=== PATIENT | male | born 1945 | race Caucasian/White ===

== ENCOUNTER → 2017-01-11 | Outpatient (CLI) | payer MEDICARE ==
[2017-01-11 11:34] LABS: CH 27.9; CHCM 32.5; HCT 47.2 % (39.0-53.0); HDW 2.43; HGB 16.1 gm/dL (13.0-17.5); MCH 29.5 pg (25.0-35.0); MCHC 34.1 g/dL (31.0-37.0); MCV 86.4 fL (80.0-100.0); Mean Platelet Volume 7.6; RBC 5.46 m/uL (4.30-5.90); RDW 14.4 % (11.5-15.5); WBC 8.6 k/uL (3.8-10.6)
[2017-01-11 11:36] LABS: Anion Gap 11 mmol/L; Blood Urea Nitrogen 18 mg/dL (9-20); Carbon Dioxide 26 mmol/L (22-30); Chloride 105 mmol/L (98-107); Non-African American GFR(MDRD) >60 (>60 ml/min/1.73 sqM); Potassium 5.1 mmol/L (3.5-5.1); Sodium 142 mmol/L (137-145)
== END | disposition home or self-care (01) ==
LOC: LABPAT 10:47
PROVIDERS: ATTEND Internal Medicine Interventional Cardiology
DX: Z01.818 Encounter for other preprocedural examination (principal); I74.11 Embolism and thrombosis of thoracic aorta
CPT/HCPCS: 80051; 82565; 84520; 85027

== ENCOUNTER 2017-01-18 07:29 | Inpatient (IN) | payer MEDICARE ==
[~2017-01-18 07:29] MED LIST: SODIUM CHLORIDE 0.9% 1,000 ML in EMPTY BAG 1 BAG IV ONE
[2017-01-18] MEDS ORDERED: ASPIRIN 81 MG CHEW ONE (07:42)
[2017-01-18] MEDS: MIDAZOLAM 2 MG/2 ML VIAL IV ONE ×4 (08:38→09:31)
[2017-01-18] MEDS ORDERED: HEPARIN SODIUM 1,000 UNIT/ML VIAL IV ONE (08:55)
[2017-01-18] MEDS: fentaNYL (PF) 50 MCG/ML 2 ML AMP IV ONE ×2 (09:12→10:01)
[2017-01-18] MEDS ORDERED: MIDAZOLAM 2 MG/2 ML VIAL IVP ONE (10:14)
[2017-01-18] MEDS ORDERED: PROTAMINE SULFATE 10 MG/ML 5 ML VIAL IV ONE (10:41)
[2017-01-18] MEDS ORDERED: HYDROmorphone 2 MG/ML 1 ML SYRINGE IVP ONE (10:44)
[2017-01-18] MEDS ORDERED: LIDOCAINE URO-JET JELLY 2% 5 ML KIT ONE (10:59)
[2017-01-18] MEDS ORDERED: SODIUM CHLORIDE 0.9% 1,000 ML IV SCH (11:00)
--- NOTE | 2017-01-18 11:37 | P.OP ---
Date of Procedure: 01/18/17 Preoperative Diagnosis: Abdominal aortoiliac aneurysm Postoperative Diagnosis: Abdominal aortoiliac aneurysm Procedure(s) Performed: Abdominal aortic aortography and iliac aortography and angiography with femoral artery primary closure with Perclose Anesthesia: local Surgeon: Stephan Mcnally Estimated Blood Loss (ml): 50 Pathology: none sent Condition: stable Disposition: floor Description of Procedure: This patient is brought to the operating suite in the catheterization laboratory Lance HEDRICK in the care of Dr. Delmer Sears and co-surgeon's with Dr. Mcnally in the treatment of aortic endo-grafting for an aortic aneurysm prepped and draped in usual sterile Betadine fashion and appropriate cannulation of his aneurysm was accomplished and we placed Perclose devices for a #2 in each common femoral artery the procedure was performed under full heparinization and deployment of the ovulation device by Endologix was appropriately performed and will be dictated by Dr. Delmer Sears during the procedure I performed technical angiographic assistance including aortography with renal artery imaging as well as iliac artery angiography at the conclusion of the procedure I did Perclose closure of both common femoral arteries by deploying and tying down the 4 Perclose devices to 4 each common femoral artery right and left successfully sealing the artery with excellent flow through the artery documented by distal pulsation patient tolerated all these procedures well Dr. Mcnally dictating thank you for typing
[2017-01-18 19:53] LABS: Glucose,Whole Blood 154 mg/dL (75-99)
[2017-01-18 20:15] VITALS: BMI 22.3
--- NOTE | 2017-01-18 22:13 | PCN ---
DATE OF PROCEDURE: 01/18/2017 PERFORMING PHYSICIANS: 1. Stephan Mcnally D.O. 2. Delmer Ruth M.D., needle bar molder. PROCEDURES PERFORMED: 1. Endoluminal abdominal aortic aneurysm repair with modular bifurcated device. 2. Extension prosthesis initial vessels. 3. Extension prosthesis each additional vessel. 4. Catheter/sheath placement into aorta, non-selective. INDICATION: This is a pleasant 71-year-old gentleman whom I see in the office as an outpatient with a known history of coronary artery disease, hypertension, dyslipidemia as well as multiple comorbid conditions. He was found to have infrarenal abdominal aortic aneurysm. He underwent a CTA which showed abdominal aortic aneurysm more than 5 cm. He was brought today to undergo stent to graft placement. COMPLICATIONS: None. LEVEL OF SEDATION: Moderate with sedation length of about 2 hours. APPROACH: Right and left common femoral arteries. PROCEDURE DESCRIPTION: After obtaining informed consent, the patient was brought to the cardiac labor utilization superintendent. The right and left groins were prepped and draped in the usual sterile fashion. Local analgesia was achieved by injecting 2% Xylocaine subcutaneously into both groins. The right common femoral and left common femoral arteries were cannulated using micropuncture technique. The micropuncture wire passed easily. Then initially I placed a micropuncture sheath in each femoral artery. I assured that the puncture site was in the mid segment of the common femoral artery by the mid femoral head. I did assure by doing bilateral common femoral artery angiograms. Subsequently I exchanged my micropuncture sheath for a 6 Somali sheath using an 0.035 Advantage wire. So I placed a 6 Somali 11 cm sheath in each groin. After that, anticoagulation was initiated using heparin, and the patient was given 10,000 units of heparin IV. ACT monitoring was performed during the case. After that, I deployed two Perclose devices on each side. The two Perclose devices were deployed at 10 o'clock and 2 o'clock on each side. Subsequently, I took the 6 Somali sheath on each side and I placed a 14 Somali sheath. I performed that using dilator with 8 Somali, 10 Somali, and 12 Somali. After that, I advanced the main neema system over an 0.035 Amplatzer super stiff wire. The stent material was placed approximately 1 cm proximal to the intended landing zone after we performed an aortogram. I verified the radiopaque marker for proper contralateral limb orientation. After the graft and sheath, the proximal stent was partially deployed by turning and pulling the first stent with the knob to the handle. ( ) was then corrected and angiogram has then performed to camille the ( ). The device was pulled into the desired position. The proximal stent was then fully deployed by turning and pulling the second release knob on the handle. The ( ) properly mixed, then connected to the delivery system. The Auto Injector was connected and the appropriate amount of polymer filled the graft. The contralateral ( ) was then cannulated and angiogram was performed to determine contralateral limb length. The contralateral limb then was deployed by unsheathing the device. The delivery system was then removed by turning and pulling the final release knob on the handle. The inner catheter was retracted through the sheath. An angiogram was performed to determine the ipsilateral limb length. Subsequently the ipsilateral limb was deployed by unsheathing the device. A final angiogram was performed to inspect any visible leak, and there was no endo leak. After that I deployed the two Perclose devices on each side. The procedure was completed without any complications. POST-PROCEDURE MANAGEMENT: 1. Antiplatelet therapy. 2. CTA of the aorta at 1 month and 6 months. 3. Keeping the patient overnight in the intensive care unit. 4. Followup with the patient.
[2017-01-19 00:10] LABS: Basophils # (A) 0.1 k/uL (0-0.2); Basophils % (A) 1 %; CH 28.7; CHCM 33.3; Eosinophils # (A) 0.2 k/uL (0-0.7); Eosinophils % (A) 2 %; HCT 44.9 % (39.0-53.0); HDW 2.39; HGB 14.9 gm/dL (13.0-17.5); Luc # (Auto) 0.12; Luc % (Auto) 1; Lymphocytes % (A) 9 %; MCH 28.7 pg (25.0-35.0); MCHC 33.1 g/dL (31.0-37.0); MCV 86.7 fL (80.0-100.0); Mean Platelet Volume 7.9; Monocytes # (A) 0.6 k/uL (0-1.0); Monocytes % (A) 6 %; Neutrophils # (A) 8.6 k/uL (1.3-7.7); Neutrophils % (A) 81 %; RBC 5.19 m/uL (4.30-5.90); RDW 14.5 % (11.5-15.5); WBC 10.5 k/uL (3.8-10.6); WBC (Perox) 10.58
[2017-01-19 05:12] LABS: Basophils % (A) 0 %; CH 29.1; CHCM 34.2; Eosinophils # (A) 0.1 k/uL (0-0.7); Eosinophils % (A) 1 %; HCT 43.2 % (39.0-53.0); HDW 2.38; HGB 14.5 gm/dL (13.0-17.5); Luc # (Auto) 0.16; Luc % (Auto) 2; Lymphocytes # (A) 1.1 k/uL (1.0-4.8); Lymphocytes % (A) 11 %; MCH 28.6 pg (25.0-35.0); MCHC 33.5 g/dL (31.0-37.0); MCV 85.4 fL (80.0-100.0); Monocytes # (A) 0.6 k/uL (0-1.0); Monocytes % (A) 6 %; Neutrophils # (A) 8.2 k/uL (1.3-7.7); Neutrophils % (A) 80 %; RBC 5.06 m/uL (4.30-5.90); RDW 14.7 % (11.5-15.5); WBC 10.2 k/uL (3.8-10.6); WBC (Perox) 10.52
[2017-01-19 05:36] LABS: Anion Gap 9 mmol/L; Blood Urea Nitrogen 13 mg/dL (9-20); Calcium 9.2 mg/dL (8.4-10.2); Carbon Dioxide 24 mmol/L (22-30); Chloride 103 mmol/L (98-107); Glucose 108 mg/dL (74-99); Non-African American GFR(MDRD) >60 (>60 ml/min/1.73 sqM); Potassium 4.2 mmol/L (3.5-5.1); Sodium 136 mmol/L (137-145)
--- NOTE | 2017-01-19 08:41 | P.PN ---
Progress Note - Text CV Surgery Nursing Principal diagnosis: Abdominal aortoiliac aneurysm. POD: Abdominal aortic aortography and iliac aortography with angiographically and femoral artery primary closure with pre-close. Patient awake and alert, no distress noted, he is complaining of pain to his lower suprapubic area that runs across his lower abdomen. Vital Signs: Afebrile Vital Signs - 24 hr 01/18/17 01/18/17 01/18/17 11:25 11:40 11:56 Temperature Pulse Rate Pulse Rate [ Technical Communicator ] Pulse Rate [ 55 L 60 60 Supine Technical Communicator] Respiratory 16 16 16 Rate Blood Pressure Blood Pressure 146/70 126/65 119/62 [Left Arm Supine] Blood Pressure [Right Arm] O2 Sat by Pulse 98 99 97 Oximetry 01/18/17 01/18/17 01/18/17 12:10 12:45 13:10 Temperature Pulse Rate Pulse Rate [ Technical Communicator ] Pulse Rate [ 62 57 L 61 Supine Technical Communicator] Respiratory 16 16 16 Rate Blood Pressure Blood Pressure 115/63 140/66 114/60 [Left Arm Supine] Blood Pressure [Right Arm] O2 Sat by Pulse 98 98 97 Oximetry 01/18/17 01/18/17 01/18/17 14:12 15:00 16:00 Temperature Pulse Rate Pulse Rate [ Technical Communicator ] Pulse Rate [ 61 58 L 58 L Supine Technical Communicator] Respiratory 16 16 16 Rate Blood Pressure Blood Pressure 119/67 130/66 122/66 [Left Arm Supine] Blood Pressure [Right Arm] O2 Sat by Pulse 97 97 97 Oximetry 01/18/17 01/18/17 01/18/17 16:21 17:49 19:00 Temperature 97.8 F Pulse Rate Pulse Rate [ 60 Technical Communicator ] Pulse Rate [ 58 L 63 Supine Technical Communicator] Respiratory 16 16 16 Rate Blood Pressure Blood Pressure 121/66 122/78 [Left Arm Supine] Blood Pressure 161/77 [Right Arm] O2 Sat by Pulse 99 98 97 Oximetry 01/18/17 01/18/17 01/18/17 19:51 20:00 20:10 Temperature 98.7 F Pulse Rate 62 62 61 Pulse Rate [ Technical Communicator ] Pulse Rate [ Supine Technical Communicator] Respiratory 14 14 14 Rate Blood Pressure 161/77 161/77 Blood Pressure [Left Arm Supine] Blood Pressure [Right Arm] O2 Sat by Pulse 98 98 98 Oximetry 01/18/17 01/18/1701/18/17 20:20 20:30 20:40 Temperature Pulse Rate 61 59 L 60 Pulse Rate [ Technical Communicator ] Pulse Rate [ Supine Technical Communicator] Respiratory 14 14 14 Rate Blood Pressure 161/77 161/77 161/77 Blood Pressure [Left Arm Supine] Blood Pressure [Right Arm] O2 Sat by Pulse 99 98 99 Oximetry 01/18/17 01/18/17 01/18/17 20:50 21:00 21:10 Temperature Pulse Rate 60 64 61 Pulse Rate [ Technical Communicator ] Pulse Rate [ Supine Technical Communicator] Respiratory 14 29 H 18 Rate Blood Pressure 161/77 144/73 144/73 Blood Pressure [Left Arm Supine] Blood Pressure [Right Arm] O2 Sat by Pulse 99 98 98 Oximetry 01/18/17 01/18/17 01/18/17 21:20 21:30 21:40 Temperature Pulse Rate 64 61 61 Pulse Rate [ Technical Communicator ] Pulse Rate [ Supine Technical Communicator] Respiratory 25 H 11 L 17 Rate Blood Pressure 144/73 144/73 144/73 Blood Pressure [Left Arm Supine] Blood Pressure [Right Arm] O2 Sat by Pulse 96 98 97 Oximetry 01/18/17 01/18/17 01/18/17 21:43 21:50 22:00 Temperature Pulse Rate 65 59 L Pulse Rate [ Technical Communicator ] Pulse Rate [ Supine Technical Communicator] Respiratory 17 22 16 Rate Blood Pressure 144/73 135/72 Blood Pressure [Left Arm Supine] Blood Pressure [Right Arm] O2 Sat by Pulse 93 L 98 Oximetry 01/18/17 01/18/17 01/18/17 22:10 22:20 22:30 Temperature Pulse Rate 59 L 63 58 L Pulse Rate [ Technical Communicator ] Pulse Rate [ Supine Technical Communicator] Respiratory 16 14 14 Rate Blood Pressure 135/72 135/72 135/72 Blood Pressure [Left Arm Supine] Blood Pressure [Right Arm] O2 Sat by Pulse 97 97 96 Oximetry 01/18/17 01/18/17 01/18/17 22:40 22:50 23:00 Temperature Pulse Rate 58 L 58 L 61 Pulse Rate [ Technical Communicator ] Pulse Rate [ Supine Technical Communicator] Respiratory 14 14 14 Rate Blood Pressure 135/72 135/72 135/68 Blood Pressure [Left Arm Supine] Blood Pressure [Right Arm] O2 Sat by Pulse 97 98 98 Oximetry 01/18/17 01/18/17 01/18/17 23:10 23:20 23:30 Temperature Pulse Rate 59 L 57 L 58 L Pulse Rate [ Technical Communicator ] Pulse Rate [ Supine Technical Communicator] Respiratory 14 10 L 13 Rate Blood Pressure 135/68 135/68 135/68 Blood Pressure [Left Arm Supine] Blood Pressure [Right Arm] O2 Sat by Pulse 99 98 97 Oximetry 01/18/17 01/18/17 01/18/17 23:36 23:40 23:50 Temperature Pulse Rate 60 58 L 62 Pulse Rate [ Technical Communicator ] Pulse Rate [ Supine Technical Communicator] Respiratory 18 11 L 12 Rate Blood Pressure 135/68 135/68 135/68 Blood Pressure [Left Arm Supine] Blood Pressure [Right Arm] O2 Sat by Pulse 97 95 97 Oximetry 01/19/17 01/19/17 01/19/17 00:00 00:10 00:20 Temperature 98.3 F Pulse Rate 64 60 61 Pulse Rate [ Technical Communicator ] Pulse Rate [ Supine Technical Communicator] Respiratory 16 16 14 Rate Blood Pressure 129/69 129/69 129/69 Blood Pressure [Left Arm Supine] Blood Pressure [Right Arm] O2 Sat by Pulse 96 97 95 Oximetry 01/19/17 01/19/17 01/19/17 00:30 00:40 00:50 Temperature Pulse Rate 62 64 64 Pulse Rate [ Technical Communicator ] Pulse Rate [ Supine Technical Communicator] Respiratory 14 12 23 Rate Blood Pressure 129/69 129/69 129/69 Blood Pressure [Left Arm Supine] Blood Pressure [Right Arm] O2 Sat by Pulse 95 94 L 92 L Oximetry 01/19/17 01/19/17 01/19/17 01:00 01:10 01:20 Temperature Pulse Rate 63 65 66 Pulse Rate [ Technical Communicator ] Pulse Rate [ Supine Technical Communicator] Respiratory 13 18 16 Rate Blood Pressure 121/65 121/65 121/65 Blood Pressure [Left Arm Supine] Blood Pressure [Right Arm] O2 Sat by Pulse 94 L 94 L 94 L Oximetry 01/19/17 01/19/17 01/19/17 01:30 01:40 01:50 Temperature Pulse Rate 65 65 66 Pulse Rate [ Technical Communicator ] Pulse Rate [ Supine Technical Communicator] Respiratory 11 L 16 15 Rate Blood Pressure 121/65 121/65 121/65 Blood Pressure [Left Arm Supine] Blood Pressure [Right Arm] O2 Sat by Pulse 94 L 94 L 94 L Oximetry 01/19/17 01/19/17 01/19/17 02:00 02:10 02:20 Temperature Pulse Rate 61 65 66 Pulse Rate [ Technical Communicator ] Pulse Rate [ Supine Technical Communicator] Respiratory 16 13 17 Rate Blood Pressure 116/64 116/64 116/64 Blood Pressure [Left Arm Supine] Blood Pressure [Right Arm] O2 Sat by Pulse 94 L 93 L 93 L Oximetry 01/19/17 01/19/17 01/19/17 02:30 02:40 02:50 Temperature Pulse Rate 65 66 63 Pulse Rate [ Technical Communicator ] Pulse Rate [ Supine Technical Communicator] Respiratory 18 12 14 Rate Blood Pressure 116/64 116/64 116/64 Blood Pressure [Left Arm Supine] Blood Pressure [Right Arm] O2 Sat by Pulse 93 L 93 L 93 L Oximetry 01/19/17 01/19/17 01/19/17 03:00 03:10 03:19 Temperature Pulse Rate 65 63 Pulse Rate [ Technical Communicator ] Pulse Rate [ Supine Technical Communicator] Respiratory 14 15 15 Rate Blood Pressure 114/67 114/67 Blood Pressure [Left Arm Supine] Blood Pressure [Right Arm] O2 Sat by Pulse 93 L 93 L Oximetry 01/19/17 01/19/17 01/19/17 03:20 03:30 03:40 Temperature Pulse Rate 62 62 60 Pulse Rate [ Technical Communicator ] Pulse Rate [ Supine Technical Communicator] Respiratory 13 14 13 Rate Blood Pressure 114/67 114/67 114/67 Blood Pressure [Left Arm Supine] Blood Pressure [Right Arm] O2 Sat by Pulse 94 L 94 L 94 L Oximetry 01/19/17 01/19/17 01/19/17 03:50 04:00 04:10 Temperature 97.6 F Pulse Rate 60 57 L 63 Pulse Rate [ Technical Communicator ] Pulse Rate [ Supine Technical Communicator] Respiratory 15 11 L 18 Rate Blood Pressure 114/67 119/66 119/66 Blood Pressure [Left Arm Supine] Blood Pressure [Right Arm] O2 Sat by Pulse 95 96 94 L Oximetry 01/19/17 01/19/17 01/19/17 04:20 04:30 04:40 Temperature Pulse Rate 59 L 58 L 58 L Pulse Rate [ Technical Communicator ] Pulse Rate [ Supine Technical Communicator] Respiratory 14 12 16 Rate Blood Pressure 119/66 119/66 119/66 Blood Pressure [Left Arm Supine] Blood Pressure [Right Arm] O2 Sat by Pulse 95 96 95 Oximetry 01/19/17 01/19/17 01/19/17 04:50 05:00 05:30 Temperature Pulse Rate 61 62 55 L Pulse Rate [ Technical Communicator ] Pulse Rate [ Supine Technical Communicator] Respiratory 14 11 L 17 Rate Blood Pressure 119/66 118/64 118/64 Blood Pressure [Left Arm Supine] Blood Pressure [Right Arm] O2 Sat by Pulse 95 96 92 L Oximetry 01/19/17 01/19/17 01/19/17 06:00 06:30 07:00 Temperature Pulse Rate 61 87 75 Pulse Rate [ Technical Communicator ] Pulse Rate [ Supine Technical Communicator] Respiratory 13 26 H 18 Rate Blood Pressure 115/67 115/67 115/67 Blood Pressure [Left Arm Supine] Blood Pressure [Right Arm] O2 Sat by Pulse 92 L Oximetry 01/19/17 08:00 Temperature 98.4 F Pulse Rate 84 Pulse Rate [ Technical Communicator ] Pulse Rate [ Supine Technical Communicator] Respiratory 16 Rate Blood Pressure 123/70 Blood Pressure [Left Arm Supine] Blood Pressure [Right Arm] O2 Sat by Pulse 98 Oximetry Labs: Short CBC 01/18/17 01/19/17 Range/Units 23:57 04:54 WBC 10.5 10.2 (3.8-10.6) k/uL Hgb 14.9 14.5 (13.0-17.5) gm/dL Hct 44.9 43.2 (39.0-53.0) % Plt Count 109 L 117 L (150-450) k/uL Neutrophils # 8.6 H 8.2 H (1.3-7.7) k/uL BMP 01/19/17 04:54 Sodium 136 L Potassium 4.2 Chloride 103 Carbon Dioxide 24 BUN 13 Creatinine 1.00 Glucose 108 H Calcium 9.2 Lungs: Coarse rhonchi throughout, clears with coughing. Diminished bilateral bases. Respirations are unlabored. O2 sat: 98% on room air. Heart: S1S2, regular rhythm and rate, negative for S3, gallop or murmur. Bedside telemetry showing normal sinus rhythm heart rate 83. Bilateral groin incisions clean dry and well approximated. No drainage noted. The area surrounding incisions soft palpate. Bilateral dorsalis pedis and posterior tibial pulses palpable +2. Bilateral feet cold to touch. Sequential compression devices in place to bilateral lower x-rays. Abdomen: Soft, Positive bowel sounds present in all 4 quadrants. Patient states that he is passing gas. U/O: Adequate, 1020 mL output in the last 8 hours. The bedside nurse reports urology has been consult in due to some serosanguineous colored discharge. 24 hr Total: Intake & Output 01/17/17 01/18/17 01/19/17 01/20/17 06:59 06:59 06:59 06:59 Intake Total 3000 360 Output Total 5020 50 Balance -2019 310 Weight 74.843 kg 70.5 kg Active Medications Aspirin (Aspirin) 325 mg PO DAILY OMAR Clopidogrel Bisulfate (Plavix) 75 mg PO DAILY OMAR Pravastatin Sodium (Pravachol) 80 mg PO DAILY OMAR
[2017-01-19] MEDS ORDERED: PRAVASTATIN SODIUM 80 MG TAB PO SCH (09:00)
[2017-01-19] MEDS ORDERED: CLOPIDOGREL 75 MG TAB PO SCH (09:00)
[2017-01-19] MEDS ORDERED: ASPIRIN 325 MG TAB PO SCH (09:00)
[2017-01-19 11:07] VITALS: BP 111/63
[2017-01-19 12:04] VITALS: PULSE 58; RESP 13; TEMP 97.9
--- NOTE | 2017-01-19 13:24 | IR ---
Fluoroscopy HISTORY: Aortic aneurysm 29.1 fluoroscopy time supplied to the referring clinician. 298 intraoperative C-arm images document the procedure. See dictated report from cardiology.
--- NOTE | 2017-01-19 22:12 | CONS ---
DATE OF CONSULTATION: 01/19/2017. REASON FOR CONSULTATION: Hematuria. HISTORY OF PRESENT ILLNESS: The patient is a 71-year-old male who underwent elective endovascular repair of an abdominal aortic aneurysm yesterday. A Howard catheter was inserted at the time of the surgery and the urine that initially drained was clear. Early this morning the patient was noted to have some blood draining around the catheter and through the catheter. The bleeding through the catheter has decreased, but the patient continues to have some blood oozing around the catheter. I was asked to see the patient for further evaluation. The patient has no previous history of gross hematuria. He says he usually voids every 2 to 4 hours during the day and once or twice at night. He has no history of urinary tract infection. His urine flow is described as moderate and he feels he voids completely. Patient's past medical history is significant in regard to coronary artery disease. Current medications include: 1. Aspirin. 2. Plavix. 3. Pravachol. Physical exam reveals a well-developed, 71-year-old male who is alert and oriented. Genital exam revealed no blood around the urethral catheter at the present time, and the urine in the catheter drainage bag was only slightly blood-tinged. Both testicles are descended. No hernias noted. IMPRESSION: Hematuria, most likely related to catheter trauma-worsened by use of aspirin and Plavix. RECOMMENDATION: The patient's catheter can be removed. If his urine remains clear, then no further urologic evaluation is necessary. MTDD
--- NOTE | 2017-01-20 15:09 | DS ---
DATE OF ADMISSION: 01/18/2017 DATE OF DISCHARGE: 01/19/2017 BRIEF HISTORY: This is a pleasant 71-year-old gentleman who was admitted to the hospital and underwent successful endovascular repair of infrarenal aortic aneurysm. The procedure was performed by myself in association with Dr. Pepe Mcnally. The procedure was performed from bilateral groin approach. Both groins seem to be soft and nontender and without any bruises. I was able to feel good pulse in both groins. From a cardiovascular point of view, the patient denies having any chest pain or discomfort or difficulty in breathing. I am going to discharge the patient home on aspirin and statin. The patient will be followed by myself as an outpatient, and he also will be followed by Dr. Zoltan Porras.
== END 2017-01-19 13:24 | disposition home or self-care (01) | DRG 269 ==
LOC: CATHCVL 07:29 → 6ICU 10:45
PROVIDERS: ADMIT Internal Medicine Interventional Cardiology; ATTEND Internal Medicine Interventional Cardiology
PROC: 04V03EZ Restriction of Abdominal Aorta with Branched or Fenestrated Intraluminal Device, One or Two Arteries, Percutaneous Approach (ICD-10-PCS; principal; 2017-01-18 08:20)
PROC: B41D1ZZ Fluoroscopy of Aorta and Bilateral Lower Extremity Arteries using Low Osmolar Contrast (ICD-10-PCS; 2017-01-18 08:20)
DX: I71.4 Abdominal aortic aneurysm, without rupture (principal); D68.32 Hemorrhagic disorder due to extrinsic circulating anticoagulants; R31.9 Hematuria, unspecified; I10 Essential (primary) hypertension; E78.5 Hyperlipidemia, unspecified; I25.10 Atherosclerotic heart disease of native coronary artery without angina pectoris; I73.9 Peripheral vascular disease, unspecified; F17.210 Nicotine dependence, cigarettes, uncomplicated; Z95.1 Presence of aortocoronary bypass graft; Z95.5 Presence of coronary angioplasty implant and graft; I25.2 Old myocardial infarction; Z79.02 Long term (current) use of antithrombotics/antiplatelets; Z79.82 Long term (current) use of aspirin; Z79.899 Other long term (current) drug therapy; Z88.2 Allergy status to sulfonamides
CPT/HCPCS: 34803; 36200; 75952; 80048; 85025

== ENCOUNTER → 2017-02-14 | Outpatient (CLI) | payer MEDICARE ==
[2017-02-14 14:01] LABS: Blood Urea Nitrogen 19 mg/dL (9-20); Non-African American GFR(MDRD) >60 (>60 ml/min/1.73 sqM)
--- NOTE | 2017-02-14 15:24 | CT ---
EXAMINATION TYPE: CT angio abd aorta wo/w con DATE OF EXAM: 02/14/2017 3:03 PM COMPARISON: 09/12/2016 HISTORY: Follow up stent placement CT DLP: 684.6 mGycm CONTRAST: CTA abdominal aorta with 3-D reconstruction is performed and with IV Contrast, patient injected with 100 mL of Omnipaque 350. Contrast CTA of the abdominal aorta was performed from the lung bases through the base of the pelvis. 3-D reconstruction imaging obtained at a separate workstation. CONTRAST CT ABDOMEN AND PELVIS ABDOMENAL AORTA: Interval placement of aortoiliac stent graft. No evidence for endoleak or complicati ng factor. Branch vessels perfuse normally including the celiac, SMA, ADAMS and renal arteries. Aneurys m measures 5.3 x 5.0 cm versus 5.5 x 5.2 cm previously. Iliac vessels are patent bilaterally. LIVER/GB- No significant abnormality is seen. PANCREAS- No significant abnormality is seen. SPLEEN- No significant abnormality is seen. ADRENALS-no nodule seen. Mild left adrenal thickening may reflect malacia. KIDNEYS/BLADDER- No significant abnormality is seen. BOWEL- No Significant abnormality GENITAL ORGANS: No gross abnormality seen. LYMPH NODES- No greater than 1cm abdominal or pelvic lymph nodes areappreciated. OSSEOUS STRUCTURES- No significant abnormality is seen. OTHER- No significant abnormality is seen. IMPRESSION- Aortoiliac stent graft without complicating factor at this time.
== END | disposition home or self-care (01) ==
LOC: RADCTMAIN 13:00
PROVIDERS: ATTEND Internal Medicine Interventional Cardiology
DX: Z48.812 Encounter for surgical aftercare following surgery on the circulatory system (principal); Z95.828 Presence of other vascular implants and grafts; Z98.890 Other specified postprocedural states
CPT/HCPCS: 82565; 84520; 75635; 36415; Q9967

== ENCOUNTER → 2017-10-12 | Outpatient (CLI) | payer MEDICARE ==
[2017-10-12 13:13] LABS: Anion Gap 11 mmol/L; Blood Urea Nitrogen 18 mg/dL (9-20); Carbon Dioxide 28 mmol/L (22-30); Chloride 104 mmol/L (98-107); Potassium 4.7 mmol/L (3.5-5.1); Sodium 143 mmol/L (137-145)
[2017-10-12 14:15] LABS: HCT 47.8 % (39.0-53.0); HGB 15.9 gm/dL (13.0-17.5); MCH 28.3 pg (25.0-35.0); MCHC 33.2 g/dL (31.0-37.0); MCV 85.2 fL (80.0-100.0); Mean Platelet Volume 7.5; Platelet Count 160 k/uL (150-450); RBC 5.61 m/uL (4.30-5.90); RDW 14.3 % (11.5-15.5); WBC 8.7 k/uL (3.8-10.6)
== END | disposition home or self-care (01) ==
LOC: LABWHC1 12:29
PROVIDERS: ATTEND Internal Medicine Interventional Cardiology
DX: Z01.812 Encounter for preprocedural laboratory examination (principal); I73.9 Peripheral vascular disease, unspecified
CPT/HCPCS: 36415; 80051; 82565; 84520; 85027

== ENCOUNTER 2017-10-25 06:33 | Day surgery (SDC) | payer MEDICARE ==
[2017-10-13 16:04] VITALS: BMI 24.3
[2017-10-25 07:05] VITALS: TEMP 97.7
[2017-10-25] MEDS ORDERED: MIDAZOLAM 2 MG/2 ML VIAL IV ONE (07:53)
[2017-10-25] MEDS ORDERED: LIDOCAINE 2% INJ 20 MG/ML SQ ONE (07:56)
[2017-10-25] MEDS ORDERED: SODIUM CHLORIDE 0.9% 1,000 ML IV SCH (08:30)
--- NOTE | 2017-10-25 09:50 | LTR ---
October 25, 2017 Re: Lance Levin Dear Dr. Zurita: Mr. Lance Levin underwent a peripheral angiogram because he was experiencing bilateral lower extremities intermittent claudication. 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 I want to thank you for allowing me to participate in his care and please do not hesitate to call if you have any question or concern. Sincerely, MD KURT Green / RANDALL: [id number] /
--- NOTE | 2017-10-25 09:59 | IR ---
Fluoroscopy HISTORY: Pain in bilateral legs 2.3 minutes fluoroscopy time supplied to the referring clinician. 194 intraoperative C-arm images do cument the procedure. See dictated report from cardiology.
--- NOTE | 2017-10-25 10:13 | AN ---
ANGIOGRAPHY REPORT PERIPHERAL ANGIOGRAM: DATE OF SERVICE: 10/25/2017 PERFORMING PHYSICIAN: Delmer Ruth MD, Sewage Plant Operator. PROCEDURE PERFORMED: 1. An abdominal aortogram. 2. Bilateral lower extremities runoff. INDICATION: This is a pleasant 71-year-old gentleman who is known to have infrarenal stent graft, who was experiencing bilateral lower extremities discomfort. The symptoms were related to intermittent claudication. He underwent an arterial duplex study as an outpatient and that showed intermediate bilateral SFA disease. He was brought today for a peripheral angiogram. APPROACH: Right common femoral artery. COMPLICATION: None. LEVEL OF SEDATION: Moderate with sedation length of 20 minutes. PROCEDURE DESCRIPTION: After obtaining informed consent, the patient was brought to Cardiac Low Voltage Technician. The right common femoral artery was cannulated using micropuncture technique. The micropuncture wire passed easily, then I placed a 5-Qatari sheath in the right common femoral artery. After that, I did an abdominal aortogram and bilateral lower extremities runoff using 5-Qatari pigtail catheter which was initially placed at the level of the renal arteries, then it was pulled into above the bifurcation of the aorta to right and left common iliac arteries. The procedure was completed without any complication. SELECTIVE PERIPHERAL ANGIOGRAM: 1. The abdominal aorta has stent graft, seems to be functioning normally without any evidence of endoleak. 2. COMMON ILIAC ARTERIES: The bilateral common iliac arteries also do have stent graft which seems to be patent. 3. INTERNAL ILIAC ARTERIES: The right and left internal iliac arteries are patent. 4. EXTERNAL ILIAC ARTERIES: The right external iliac artery appeared to have severe disease and the left external iliac arteries appear to have severe disease as well. 5. COMMON FEMORAL ARTERIES: The right and left common femoral arteries appear to have mild disease. 6. PROFUNDA: The right and left profunda are patent. 7. THE SFA: The right SFA has mild disease and left SFA has severe disease in the midportion. 8. POPLITEAL: The right and left popliteal appeared to be angiographically normal. 9. BELOW THE KNEE: There are 3 vessels runoff below the knee with a slow opacification on the left side more than the right side likely because of the decreased inflow. The flow at the foot level on the left side was not well opacified. CONCLUSION: 1. Patent stent graft in the infrarenal aorta without any evidence of endoleak. 2. Severe bilateral external iliac arteries disease. 3. Severe left SFA disease. POSTPROCEDURE MANAGEMENT: 1. The patient will be scheduled to undergo a ESCROW AGENT of bilateral external iliac arteries and ESCROW AGENT of the left SFA. KURT / RANDALL: [id number] /
[2017-10-25 10:22] VITALS: RESP 16
[2017-10-25 14:42] VITALS: BP 128/72; PULSE 66
== END 2017-10-25 14:43 | disposition home or self-care (01) ==
LOC: CATHCVL 06:33
PROVIDERS: ATTEND Internal Medicine Interventional Cardiology
DX: I70.213 Atherosclerosis of native arteries of extremities with intermittent claudication, bilateral legs (principal); I25.10 Atherosclerotic heart disease of native coronary artery without angina pectoris; F17.210 Nicotine dependence, cigarettes, uncomplicated; Z95.1 Presence of aortocoronary bypass graft; Z95.828 Presence of other vascular implants and grafts; E78.5 Hyperlipidemia, unspecified; Z79.02 Long term (current) use of antithrombotics/antiplatelets; Z79.82 Long term (current) use of aspirin; Z79.899 Other long term (current) drug therapy; Z88.2 Allergy status to sulfonamides
CPT/HCPCS: 36200; 75625; 75716; C1894; C1769 ×4; J2001; J2250

== ENCOUNTER 2017-12-06 10:50 | Day surgery (SDC) | payer MEDICARE ==
[2017-12-01 14:22] VITALS: BMI 24.3
[2017-12-06] MEDS ORDERED: ASPIRIN 81 MG ONE (11:20)
[2017-12-06 11:34] VITALS: RESP 18
[2017-12-06 11:43] LABS: Basophils % (A) 1 %; Eosinophils # (A) 0.2 k/uL (0-0.7); Eosinophils % (A) 2 %; HCT 45.8 % (39.0-53.0); HGB 16.1 gm/dL (13.0-17.5); Lymphocytes # (A) 1.5 k/uL (1.0-4.8); Lymphocytes % (A) 21 %; MCH 28.7 pg (25.0-35.0); MCHC 35.2 g/dL (31.0-37.0); MCV 81.6 fL (80.0-100.0); Mean Platelet Volume 7.3; Monocytes # (A) 0.4 k/uL (0-1.0); Monocytes % (A) 5 %; Neutrophils # (A) 5.2 k/uL (1.3-7.7); Neutrophils % (A) 70 %; Platelet Count 147 k/uL (150-450); RBC 5.61 m/uL (4.30-5.90); RDW 14.4 % (11.5-15.5); WBC 7.4 k/uL (3.8-10.6)
[2017-12-06 12:14] LABS: Calcium 9.5 mg/dL (8.4-10.2); Potassium 4.3 mmol/L (3.5-5.1)
[2017-12-06] MEDS ORDERED: niCARdipine 25 MG/10 ML VIAL ONE (12:42)
[2017-12-06] MEDS ORDERED: MIDAZOLAM 2 MG/2 ML VIAL IV ONE ×3 (12:55→13:20)
[2017-12-06] MEDS ORDERED: LIDOCAINE 2% INJ 20 MG/ML SQ ONE (13:01)
[2017-12-06] MEDS: HEPARIN SODIUM 1,000 UN/ML (10ML VL) IV ONE ×2 (13:20→14:03)
[2017-12-06] MEDS ORDERED: SODIUM CHLORIDE 0.9% 1,000 ML IV SCH (14:30)
[2017-12-06] MEDS ORDERED: CLOPIDOGREL 75 MG TAB PO ONE (14:33)
[2017-12-06] MEDS ORDERED: IODIXANOL 320 MG/ML 100 ML INTRAARTER ONE (14:33)
--- NOTE | 2017-12-06 15:30 | LTR ---
DATE OF SERVICE: 12/06/2017 RE: Lance Levin Dear Dr. Zurita; Mr. Lance Levin underwent successful bilateral iliac stenting with good angiographic results and without any complication. I want to thank you for allowing me to participate in his care and please do not hesitate to call if you have any question or concern. Sincerely, Delmer Ruth MD [email or web address] / SOFIAN: [id number] /
--- NOTE | 2017-12-06 17:16 | AN ---
ANGIOGRAPHY REPORT DATE OF SERVICE: 12/06/2017. PERFORMING PHYSICIAN: Delmer Ruth MD, government sales manager. PROCEDURE PERFORMED: 1. Selective bilateral external iliac artery angiogram. 2. Intravascular ultrasound IVUS of bilateral external iliac arteries. 3. Successful stenting of the left external iliac artery using 9 x 80 mm self- expandable stent with good angiographic results. 4. Successful stenting of the right external iliac artery using 9 x 60 mm self- expandable stent with good angiographic results. INDICATION: This is a pleasant 71-year-old gentleman who is known to have peripheral arterial disease who was experiencing bilateral lower extremities intermittent claudication. He underwent a peripheral angiogram a few weeks ago and that showed severe disease involving bilateral external iliac arteries. He was brought today to undergo an intervention. APPROACH: Right and left common femoral arteries. COMPLICATIONS: None. LEVEL OF SEDATION: Moderate with sedation length of 17 minutes. PROCEDURE DESCRIPTION: After obtaining an informed consent, the patient was brought to the cardiac lab clerk. The right and left common femoral arteries were cannulated using micropuncture technique and a micropuncture wire passed easily. hen I placed a 23 cm 6-Italian Brite Tip sheath in both femoral arteries. After that, I did selective right and left external iliac arteries angiogram with injection through the sheath. After that, I did intravascular ultrasound of bilateral external iliac arteries after I did exchange my 0.035 wire into 0.014 wire using 0.035 catheter. After that, I did balloon angioplasty of both iliacs using 8 mm balloon. For the left external iliac, I did deploy a 9 x 80 mm self-expandable stent where the stent was positioned under fluoroscopic guidance and it was deployed and post dilated using 8 mm balloon. For the right iliac, I did deploy 9 x 60 mm self-expandable stent and again the stent was positioned under fluoroscopy guidance and deployed. I postdilated using 8 mm balloon. The following angiogram showed good angiographic result without perforation and without dissection with good flow. The procedure was completed without any complication. POSTPROCEDURE MANAGEMENT: 1. Dual anti-platelet therapy. 2. Risk factor modification. 3. Follow up with the patient. MMODL / IJN: [id number] /
[2017-12-06] MEDS ORDERED: ATROPINE SULFATE 0.1 MG/ML 10ML SYRINGE ONE (20:04)
[2017-12-06] MEDS ORDERED: ATORVASTATIN 10 MG TAB PO SCH (21:00)
[2017-12-07 04:17] VITALS: BP 120/61; PULSE 65; TEMP 97.4
[2017-12-07 06:21] LABS: Basophils % (A) 0 %; Eosinophils # (A) 0.2 k/uL (0-0.7); Eosinophils % (A) 2 %; HCT 43.6 % (39.0-53.0); HGB 15.2 gm/dL (13.0-17.5); Lymphocytes # (A) 1.1 k/uL (1.0-4.8); Lymphocytes % (A) 13 %; MCH 28.2 pg (25.0-35.0); MCHC 34.8 g/dL (31.0-37.0); MCV 81.1 fL (80.0-100.0); Mean Platelet Volume 7.6; Monocytes # (A) 0.6 k/uL (0-1.0); Monocytes % (A) 6 %; Neutrophils # (A) 6.9 k/uL (1.3-7.7); Neutrophils % (A) 78 %; Platelet Count 133 k/uL (150-450); RBC 5.37 m/uL (4.30-5.90); RDW 14.5 % (11.5-15.5); WBC 8.8 k/uL (3.8-10.6)
[2017-12-07 06:40] LABS: Potassium 4.3 mmol/L (3.5-5.1)
[2017-12-07] MEDS ORDERED: ASPIRIN 81 MG PO SCH (09:00)
[2017-12-07] MEDS ORDERED: CLOPIDOGREL 75 MG TAB PO SCH ×2 (09:00)
--- NOTE | 2017-12-07 09:18 | IR ---
EXAMINATION TYPE: IR ferry boat captain iliac DATE OF EXAM: 12/06/2017 COMPARISON: NONE HISTORY: Peripheral vascular occlusive disease. Fluoroscopy was provided to the referring clinician. See dictated report from cardiology.
--- NOTE | 2017-12-07 22:39 | P.DS ---
Providers Date of admission: 12/06/2017 Attending physician: Delmer Ruth Primary care physician: D[facility] Hospital Course: This is a pleasant 71-year-old gentleman who was admitted to the hospital yesterday and underwent successful stenting of bilateral iliac arteries from right and left groin approach. The procedure was completed without any complication and with a good angiographic results. I'll follow-up with the patient today, he is completely asymptomatic. Both the groins are soft and nontender and without any bruises. The patient is going to be discharged home on dual antiplatelet therapy and I' ll follow-up with the patient in a week in the office Patient Condition at Discharge: Stable Plan - Discharge Summary Discharge Rx Participant: No New Discharge Prescriptions: Continue Clopidogrel [Plavix] 75 mg PO DAILY Aspirin [Adult Low Dose Aspirin EC] 81 mg PO DAILY Lovastatin [Mevacor] 10 mg PO HS Discharge Medication List Aspirin [Adult Low Dose Aspirin EC] 81 mg PO DAILY 12/18/15 [History] Clopidogrel [Plavix] 75 mg PO DAILY 12/18/15 [History] Lovastatin [Mevacor] 10 mg PO HS 12/01/17 [History] Follow up Appointment(s)/Referral(s): Delmer Ruth MD [STAFF PHYSICIAN] - 12/14/17 4:30 pm () Patient Instructions/Handouts: Peripheral Vascular Stent Placement (DC), Peripheral Artery Disease (DC) Discharge Disposition: HOME SELF-CARE
== END 2017-12-07 09:24 | disposition home or self-care (01) ==
LOC: CATHCVL 10:50 → 6SEL 14:10 → CATHCVL 12-07 09:24 → 6SEL 12-07 09:27
PROVIDERS: ATTEND Internal Medicine Interventional Cardiology
DX: I70.213 Atherosclerosis of native arteries of extremities with intermittent claudication, bilateral legs (principal); I25.10 Atherosclerotic heart disease of native coronary artery without angina pectoris; F17.210 Nicotine dependence, cigarettes, uncomplicated; E78.5 Hyperlipidemia, unspecified; Z95.1 Presence of aortocoronary bypass graft; Z95.5 Presence of coronary angioplasty implant and graft; Z95.828 Presence of other vascular implants and grafts; Z79.02 Long term (current) use of antithrombotics/antiplatelets; Z79.82 Long term (current) use of aspirin; Z79.899 Other long term (current) drug therapy; Z88.2 Allergy status to sulfonamides
CPT/HCPCS: 37221 ×2; 37252; 37253; 80048 ×2; 85025 ×2; C1725; C1876; C1769 ×5; C1894; C1753; J2001; J2250; Q9967; J1644

== ENCOUNTER → 2018-10-29 | Outpatient (CLI) | payer MEDICARE ==
--- NOTE | 2018-10-29 13:19 | US ---
EXAMINATION TYPE: US groin LT DATE OF EXAM: 10/29/2018 COMPARISON: NONE CLINICAL HISTORY: K40.20 Bilateral inguinal hernia. See pictures for left with the right groin ultrasound. Bilateral groin scanned, unable to detect hernia's by today's ultrasound. IMPRESSION: No evidence for hernia at this time.
--- NOTE | 2018-10-29 13:24 | US ---
EXAMINATION TYPE: US groin RT DATE OF EXAM: 10/29/2018 COMPARISON: NONE CLINICAL HISTORY: K40.20 Bilateral inguinal hernia. Bilateral groins scanned with and without valsalva maneuver. Unable to detect hernia on right or left by today's ultrasound. IMPRESSION: negative
== END | disposition home or self-care (01) ==
LOC: RADUSWWP 12:09
PROVIDERS: ATTEND Family Medicine
DX: K40.20 Bilateral inguinal hernia, without obstruction or gangrene, not specified as recurrent (principal)

== ENCOUNTER → 2019-10-22 | Outpatient (CLI) | payer MEDICARE ==
--- NOTE | 2019-10-22 09:43 | CT ---
EXAMINATION TYPE: CT angio abdomen pelvis DATE OF EXAM: 10/22/2019 9:23 AM COMPARISON: 09/04/2017 HISTORY: Iliac artery aneurysm CT DLP: 1930 mGycm Automated exposure control for dose reduction was used. TECHNIQUE: Axial, reconstructions coronal sagittal 3-D reconstruction images performed. Contrast: 100 cc Isovue 370 FINDINGS: LUNG BASES: Bibasilar subsegmental dependent atelectasis is noted. LIVER/GB: No significant abnormality is appreciated. PANCREAS: No significant abnormality is seen. No ductal dilatation. SPLEEN: Unremarkable size and morphology of the spleen. ADRENALS: No significant abnormality is seen. KIDNEYS: Punctate nonobstructing renal calculi are seen bilaterally at the inferior pole (1 on each s jorge). Other calcifications represent renal arterial calcifications and are linear in orientation. Sugey pect a parapelvic right renal cyst BOWEL: No bowel dilatation or significant abnormality. PROSTATE/SEMINAL VESICLES: Prostate gland is lobulated and enlarged. Appears to be enhancing nodule e xtending off the prostate inferior margin of the bladder is noted and sequence 18 image 71. Measures approximately 1.7 cm. LYMPH NODES: No greater than 1cm abdominal or pelvic lymph nodes are appreciated. OSSEOUS STRUCTURES: Multilevel moderate degenerative changes of the thoracolumbar spine are present. Arthropathy of the hips. OTHER: Aortoiliac endograft and pararenal stent are again seen with aneurysmal dilatation of both the aorta and iliac arteries. No evidence of intramural hematoma on the unenhanced images. Endograft beg ins above the origins of the renal arteries at the level of the SMA. 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 No significant stenosis is seen of the origin of the SMA or renal arteries. ADAMS is not clearly identified. No evidence of endoleak is seen. Abdominal aortic aneurysm measures up 6.4 x 3.9 cm cm and previously measured 5.3 x 3.7 cm. There is stability in location of both the aortic stent and endograft. Right iliac artery measures up to 4.1 cm and producing measuring 3.1 cm. Left iliac artery measures up to 2.1 cm. IMPRESSION: 1. Aortic stent graft with no evidence of endoleak. Distal margin of the grand traverse aortic sac appears en larged on today's exam relative to the prior exam measuring 6.4 x 3.9 cm and previously measuring 5.3 x 3.7 cm just above the bifurcation. 2. There is interval increase in size of the right common iliac artery aneurysm which now measures a maximal dimension of 4.1 cm and previously measured 3.1 cm in maximal dimension. 3. Prostate hypertrophy correlate with PSA. There is a 1.7 cm enhancing nodule likely arising from th e superior margin of the prostate. Bladder nodule not excluded correlate clinically. A Yellow level critical message alert has been initiated for Bradley Porras DO via the [employer] Critical Results System on 10/22/2019 9:37 AM. This message alert has been sent to Bradley plaza DO via the preferences provided by the clinician for the receipt of Radiology Critical Findings. Message ID [id number].
== END | disposition home or self-care (01) ==
LOC: RADCTMAIN 07:08
PROVIDERS: ATTEND Thoracic Surgery (Cardiothoracic Vascular Surgery)
DX: I72.3 Aneurysm of iliac artery (principal)
CPT/HCPCS: 82565; 84520; 36415; 74174; Q9967

== ENCOUNTER → 2019-11-18 | Outpatient (CLI) | payer MEDICARE ==
[2019-11-18 11:07] LABS: HGB 15.6 gm/dL (13.0-17.5); MCH 27.7 pg (25.0-35.0); MCHC 32.5 g/dL (31.0-37.0); MCV 85.3 fL (80.0-100.0); Mean Platelet Volume 7.8; Platelet Count 145 k/uL (150-450); RBC 5.63 m/uL (4.30-5.90); RDW 14.8 % (11.5-15.5); WBC 9.2 k/uL (3.8-10.6)
[2019-11-18 16:40] LABS: African American GFR (CKD) 77.3 (60.0-200.0); Anion Gap 7.3 mmol/L (4.00-12.00); Carbon Dioxide 26.7 mmol/L (21.6-31.8); Non-African American GFR(CKD) 66.7 (60.0-200.0); Potassium 4.5 mmol/L (3.5-5.5)
== END | disposition home or self-care (01) ==
LOC: LABWHC1 10:12
PROVIDERS: ATTEND Internal Medicine Interventional Cardiology
DX: Z01.812 Encounter for preprocedural laboratory examination (principal); I25.10 Atherosclerotic heart disease of native coronary artery without angina pectoris
CPT/HCPCS: 36415; 80051; 82565; 84520; 85027

== ENCOUNTER → 2020-03-13 | Outpatient (CLI) | payer MEDICARE ==
[2020-03-13 11:09] LABS: HCT 45.8 % (39.0-53.0); HGB 15.7 gm/dL (13.0-17.5); MCH 29.6 pg (25.0-35.0); MCHC 34.3 g/dL (31.0-37.0); MCV 86.3 fL (80.0-100.0); Mean Platelet Volume 7.9; Platelet Count 135 k/uL (150-450); RBC 5.31 m/uL (4.30-5.90); RDW 14.2 % (11.5-15.5); WBC 8.4 k/uL (3.8-10.6)
[2020-03-13 11:33] LABS: Potassium 4.3 mmol/L (3.5-5.1)
== END | disposition home or self-care (01) ==
LOC: LABPAT 10:30
PROVIDERS: ATTEND Internal Medicine Interventional Cardiology
DX: Z01.818 Encounter for other preprocedural examination (principal); I72.3 Aneurysm of iliac artery
CPT/HCPCS: 80051; 82565; 84520; 85027

== ENCOUNTER 2020-03-17 06:06 | Day surgery (SDC) | payer MEDICARE ==
[2020-03-13 14:20] VITALS: BMI 24.3
[~2020-03-17 06:06] MED LIST changes: +ASPIRIN 325 MG TAB PO STA
[2020-03-17] MEDS ORDERED: MIDAZOLAM 2 MG/2 ML VIAL IVP ONE ×2 (07:50→08:29)
[2020-03-17] MEDS ORDERED: LIDOCAINE 1% INJ 10MG/ML (20 ML MDV) SQ ONE (07:54)
[2020-03-17] MEDS ORDERED: fentaNYL (PF) 50 MCG/ML 2 ML AMP IV ONE (07:58)
[2020-03-17] MEDS: fentaNYL (PF) 50 MCG/ML 2 ML AMP IV ONE ×3 (08:00→09:05)
[2020-03-17] MEDS: HEPARIN SODIUM 1,000 UN/ML (10ML VL) IV ONE ×2 (08:02→08:55)
[2020-03-17] MEDS ORDERED: HYDROmorphone 1 MG/ML 1 ML SYRINGE IVP ONE ×2 (08:40→09:04)
[2020-03-17] MEDS ORDERED: IOPAMIDOL-250 100ML BTL INTRAARTER ONE ×2 (09:12)
[2020-03-17] MEDS ORDERED: SODIUM CHLORIDE 0.9% 1,000 ML IV SCH (09:30)
--- NOTE | 2020-03-17 11:43 | P.OP ---
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 Postoperative Diagnosis: Same Procedure(s) Performed: #1 endovascular aortic repair with placement of right iliac limb extension with ovation 22 x 140 mm graft #2 ultrasound-guided right common femoral artery access #3 aortogram with selective right iliofemoral angiogram #4 percutaneous closure of the right common femoral artery with Perclose 2 Anesthesia: local, other (Moderate conscious sedation time 83 minutes) Surgeon: Leonel Staley Hoof And Shoe Inspector #1: Delmer Ruth (Co-surgeon) Estimated Blood Loss (ml): 50 Pathology: none sent Condition: stable Disposition: PACU Indications for Procedure: 74-year-old gentleman with history of endovascular aortic repair several years ago presented to Dr. Ruth's office for his normal follow-up which demonstrated increasing size of his abdominal aorta to 6.4cm from 5.3cm previously. On CTA of the abdomen and pelvis there was dislodgment of the right iliac graft which was now in the aortic sac. Patient presents for realignment of the iliac limb for treatment of his expanding aneurysm. Patient denies any fevers, chills, nausea, vomiting, chest pain or shortness of breath. Operative Findings: Right iliac limb dislodgment into the aorta Description of Procedure: After written informed consent was obtained, the patient was brought to the Forestry Extension Specialist and laid in a supine position. The area of the groins and right arm were prepped and draped in usual sterile fashion. Procedure was performed under conscious sedation with continuous EKG and pulse ox monitoring. Utilizing ultrasound the right common femoral artery was visualized and demonstrated some calcific disease on the posterior aspect but otherwise patent. Under ultrasound guidance and utilizing Seldinger technique a 6-Rwandan sheath was placed followed by Glidewire. 2 Perclose closure device systems were deployed in normal fashion after removal of the 6-Rwandan sheath. A 10-Rwandan sheath was then placed over the wire. Patient was administered 6000 units of heparin and redosed 2000 units at the 45 minute camille. Glidewire was then placed within the limb and into the descending thoracic aorta followed by Q 50 balloon and balloon angioplasty was performed within the limb and with downward force the limb was pulled with into the aortic sac to straighten out the limb as much as possible. This was followed by a angled glide catheter which was placed within the descending thoracic aorta after an angiogram was obtained within the graft to insure appropriate placement of the wire. Utilizing the angled catheter attempts was then performed to place a stiff wire. Due to the severe tortuosity the wire was unable to be passed and therefore the glide catheter was removed and replaced with a stiff crossing catheter. Utilizing the crossing catheter a Amplatz wire was placed followed by a marking pigtail catheter. Retrograde angiogram was then obtained to measure for placement of the iliac limb. A 22 x 140 mm ovation limb was chosen to be placed and attempt to place the limb was performed. We are unable to get the limb to cross into the aortic graft and therefore it was removed and a 14-Rwandan sheath was placed but were still unable to pass the device. A 10 x 40 mm balloon was then placed at the proximal aspect of the existing limb and balloon angioplasty was performed, followed by placement of a 14-Rwandan long sheath to allow for a stiff for rail to get the deployment sheath in place. We were still having difficulty due to the tortuosity and therefore a stiff Lunderquist wire was placed followed by the ovation limb. The limb was then deployed in normal fashion. Balloon angioplasty of the overlaps were then performed with the Q 50 balloon. Pigtail catheter was then placed above the aortic graft and final aortogram was obtained. For all details of the angiograms please see Dr. Ruth's dictation. All guidewires and catheters were then removed the Perclose closure devices were then closed in normal fashion for hemostasis. Patient had palpable PT pulses at the conclusion of the procedure and was sent to PACU for recovery.
--- NOTE | 2020-03-17 17:29 | P.PCN ---
Date of Procedure: 03/17/20 Operative Findings: Peripheral angiogram Performing physicians 1. ERROL Bhagat, primary surgeon 2. Delmer Ruth MD, co-surgeon Procedure performed 1. An abdominal aortogram 2. Selective right iliofemoral angiogram 3. selective left iliofemoral angiogram 3. Successful endovascular aortic repair and placement of right iliac limb extension Indication This is a very pleasant 74-year-old gentleman who underwent in 2018 successful endovascular repair of an foraminal abdominal aortic aneurysm. He was undergoing monitoring of the aneurysm with a CTA. The last CT revealed increasing in the size of the abdominal aorta to 6.4 from 5.3 previously. Also the CTA revealed that the right iliac limb migrated up to the aortic sac. He was brought today to undergo repair of the right iliac limb and extension of the limp as well. Approach Right common femoral artery Complications None Level of sedation Moderate with a sedation length of 83 minutes Procedure description Please refer to the details of the procedure by Dr. Staley separate dictation. I am dictating the angiogram part of the procedure. After accessing the right common femoral artery and placing a 10 Chadian sheath, anticoagulation was initiated using heparin. Subsequently in all 35 Glidewire was advanced within the limp on the right side into the descending thoracic aorta. We did perform selective aortoiliac angiogram which revealed patent stent in the right external iliac artery with the right limp which was migrated all the way to the aortic sac with extreme angulation of the junction of the limp with the sac. Also before we deployed the aortic limp on the right side we did perform an aortogram which revealed normal Infrarenal aorta. Final aortogram along was bilateral aortoiliac angiogram was performed and showed excellent angiographic results without any evidence of endoleak. The procedure was completed without any complication
[2020-03-17] MEDS ORDERED: ATORVASTATIN 10 MG TAB PO SCH (21:00)
[2020-03-18 04:43] VITALS: TEMP 98.3
[2020-03-18 07:05] LABS: Basophils % (A) 0 %; Eosinophils # (A) 0.2 k/uL (0-0.7); Eosinophils % (A) 2 %; HCT 42.9 % (39.0-53.0); HGB 14.5 gm/dL (13.0-17.5); Lymphocytes # (A) 1.5 k/uL (1.0-4.8); Lymphocytes % (A) 15 %; MCH 29.2 pg (25.0-35.0); MCHC 33.9 g/dL (31.0-37.0); MCV 86.2 fL (80.0-100.0); Mean Platelet Volume 8.2; Monocytes # (A) 0.5 k/uL (0-1.0); Monocytes % (A) 5 %; Neutrophils # (A) 7.6 k/uL (1.3-7.7); Neutrophils % (A) 77 %; Platelet Count 119 k/uL (150-450); RBC 4.98 m/uL (4.30-5.90); RDW 14.3 % (11.5-15.5); WBC 9.9 k/uL (3.8-10.6)
[2020-03-18 07:25] LABS: Calcium 8.8 mg/dL (8.4-10.2); Potassium 4.4 mmol/L (3.5-5.1)
--- NOTE | 2020-03-18 07:38 | P.DS ---
Providers Date of admission: 03/17/2020 Attending physician: Delmer Ruth Primary care physician: Stated None Hospital Course: This is a 74-year-old gentleman who was admitted to the hospital yesterday and underwent an extension of right limb off of previously endovascular repair abdominal aortic aneurysm. The patient was seen this morning. The right groin is soft and nontender and without any bruises. The patient's going to be discharged home. I am going to follow-up next week in the office. Plan - Discharge Summary Discharge Rx Participant: Yes New Discharge Prescriptions: Continue Clopidogrel [Plavix] 75 mg PO DAILY Aspirin [Adult Low Dose Aspirin EC] 81 mg PO DAILY Lovastatin [Mevacor] 10 mg PO HS Discharge Medication List Aspirin [Adult Low Dose Aspirin EC] 81 mg PO DAILY 12/18/15 [History] Clopidogrel [Plavix] 75 mg PO DAILY 12/18/15 [History] Lovastatin [Mevacor] 10 mg PO HS 12/01/17 [History] Follow up Appointment(s)/Referral(s): Delmer Ruth MD [STAFF PHYSICIAN] - 1 Week Patient Instructions/Handouts: How to Stop Smoking (DC)
[2020-03-18 10:59] VITALS: BP 115/61; PULSE 60; RESP 18
--- NOTE | 2020-03-18 11:52 | IR ---
EXAMINATION TYPE: IR stent intravas non coronary DATE OF EXAM: 03/17/2020 CLINICAL HISTORY: Stent stenosis. TECHNIQUE: Fluoroscopy. COMPARISON: None. FINDINGS: Fluoroscopic guidance was provided during abdominal and iliac artery angiogram with balloo n angioplasty procedure performed by Dr. Ruth. A total of 23.0 minutes of fluoroscopic time was util ized during the procedure multiple cine runs are acquired. Images show accessed via bilateral groin w ith aortic and iliac stent grafts. Please refer to procedure note for further details as I was not pr esent nor procedure. IMPRESSION: As Above.
== END 2020-03-18 11:19 | disposition home or self-care (01) ==
LOC: CATHCVL 06:06 → 3SCARD 09:15 → CATHCVL 03-18 11:19
PROVIDERS: ATTEND Internal Medicine Interventional Cardiology
DX: T82.898A Other specified complication of vascular prosthetic devices, implants and grafts, initial encounter (principal); I71.4 Abdominal aortic aneurysm, without rupture; I72.3 Aneurysm of iliac artery; Z95.820 Peripheral vascular angioplasty status with implants and grafts; I25.10 Atherosclerotic heart disease of native coronary artery without angina pectoris; I70.213 Atherosclerosis of native arteries of extremities with intermittent claudication, bilateral legs; Z95.1 Presence of aortocoronary bypass graft; I10 Essential (primary) hypertension; I25.2 Old myocardial infarction; F17.210 Nicotine dependence, cigarettes, uncomplicated; Z79.02 Long term (current) use of antithrombotics/antiplatelets; Z79.82 Long term (current) use of aspirin; Z79.899 Other long term (current) drug therapy; Z88.2 Allergy status to sulfonamides
CPT/HCPCS: 34710; 80048; 85025; C1894 ×4; C1769 ×7; C1725 ×2; C1760; J2250; J2001; J3010; J1644; J1170; Q9966

== ENCOUNTER → 2020-05-11 | Outpatient (CLI) | payer MEDICARE ==
--- NOTE | 2020-05-11 17:54 | CT ---
EXAM: CTA of the abdomen and pelvis DATE OF SERVICE: 05/11/2020 INDICATION: Abdominal aortic aneurysm. COMPARISON: CTA abdomen and pelvis 10/22/2019] TECHNIQUE: Multiple thin slice sub-millimeter images were obtained through the abdomen, pelvis, and l ower extremities after administration of contrast. Patient was given Optiray 350, 125 cc intravenous ly. 3-D reconstructed images and maximum intensity projection images were obtained of the abdomen, p jagruti, and lower extremities. FINDINGS: CTA Abdomen and pelvis: There is aortobiiliac endograft and left pararenal stent redemonstrated. There has been interval plac ement of additional overlapping intraluminal right common iliac stent. Bilateral external iliac arter y stents redemonstrated and patent. The abdominal aortic aneurysm sac measures up to 5.9 x 3.6 cm, pr eviously 5.9 x 3.8 cm on 10/22/2019 comparison, not significant changed. The right common iliac artery aneurysm that measures up to 3.6 cm AP, previously 3.7 cm on 10/22/2019 comparison, not significant c hanged. No evidence of intramural hematoma on unenhanced images. No evidence of contrast opacificatio n of the abdominal aortic or right common iliac aneurysm sacs to suggest endoleak. 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 The superior mesenteric and renal arteries are patent. Again there is no opacification of the inferior mesenteric artery. VISCERA: Mild bibasilar atelectasis. The liver, biliary system, pancreas, spleen, adrenal glands, and left kidney are normal. Right renal cysts redemonstrated. Renal artery calcifications bilaterally. N o evidence of bowel obstruction. Urinary bladder incompletely distended. Noncontrast prostate unremar kable, and delayed imaging does not go through the level of the prostate. No pneumoperitoneum or free fluid. No lymphadenopathy. Degenerative changes of the spine. IMPRESSIONS: Aortobiiliac stent graft, with interval placement of overlapping right common iliac artery stent. The abdominal aortic and right common iliac artery aneurysm sacs are unchanged versus 10/22/2019 comparis on, with no evidence of endoleak. Patent bilateral external iliac stents.
== END | disposition home or self-care (01) ==
LOC: RADCTMAIN 12:40
PROVIDERS: ATTEND Internal Medicine Interventional Cardiology
DX: I71.4 Abdominal aortic aneurysm, without rupture (principal)
CPT/HCPCS: 82565; 84520; 36415; 74174; Q9967

== ENCOUNTER → 2021-05-28 | Outpatient (CLI) | payer MEDICARE ==
--- NOTE | 2021-05-30 18:35 | CT ---
EXAMINATION TYPE: CT pelvis w con DATE OF EXAM: 05/28/2021 COMPARISON: 05/11/2020 HISTORY: 75-year-old male R10.9, Abdominal pelvic pain. Right lower quadrant pain and hip/groin pain. TECHNIQUE: Contiguous axial scanning of the pelvis following administration of 100 ml Isovue 300 IV c ontrast. Delayed images through the bladder and coronal/sagittal reconstructions performed. CT DLP: 775 mGycm Automated exposure control for dose reduction was used. FINDINGS: There is is nodular 1.4 cm mural thickening along the right posterior base of the bladder wall, axial image 40. No discrete filling defect is seen here on the delayed bladder images, possibly relating t o the ureteral orifice. There is additional nodular soft tissue measuring 1.9 cm impressing on the base of the bladder from t he prostate gland similar to prior exam. The prostate gland is mildly enlarged at 4.2 cm wide. Postsurgical change of aortobiiliac endovascular stent graft repair. The contrast bolus density is araujo boptimal for assessment of endoleak. The distal abdominal aorta is tortuous kake sac measuring up to 2.7 cm, unchanged. Right common iliac artery kake sac dilated at 3.8 cm, unchanged. The medial wall of the kake sac has pulled away from the landing zone of the stent. On coronal, and measure a caliber of 4.0 cm at th is level versus 3.0 cm or less, previously. Refer to coronal image 62. The junction of the right exte rnal iliac artery stent and aortobiiliac endovascular stent graft landing zone is not dilated up to 3 .4 cm, axial image 24 versus 2.4 cm, previously. Partially visualized cyst medial lower pole right kidney measuring 2.1 cm. No evident lymphadenopathy in the lower abdomen or pelvis. Bones: Mild degenerative change in both hips. Moderate degenerative disc disease and facet arthropath y visualized lower lumbar spine. Grade 1 retrolisthesis L2-L3 and L3-L4 is similar. IMPRESSION: 1. PARTIALLY VISUALIZED AORTOBIILIAC ENDOVASCULAR STENT GRAFT. THE DEGREE OF OPACIFICATION ON THIS PE LVIC STUDY IS NOT ADEQUATE FOR ASSESSMENT OF ENDOLEAK. 2. HOWEVER, NOTE THAT THERE IS NEW ANEURYSMAL ENLARGEMENT AT THE JUNCTION OF THE RIGHT COMMON ILIAC A RTERY STENT GRAFT LANDING ZONE AND THE RIGHT EXTERNAL ILIAC ARTERY STENT UP TO 3.4 CM VERSUS 2.4 CM O N 05/11/2020. BECAUSE OF THIS, THE MEDIAL WALL OF THE RIGHT COMMON ILIAC ARTERY HAS PULLED AWAY FROM T HE DISTAL STENT GRAFT. DISTAL SHOALWATER SAC OF THE RIGHT COMMON ILIAC ARTERY IS NOW DILATED UP TO 4.0 CM VERSUS 3.0 CM, PREVIOUSLY. THE MORE PROXIMAL SHOALWATER SAC REMAINS UNCHANGED AT 3.8 CM. APPROPRIATE VAS CULAR FOLLOW-UP FOR POTENTIAL TYPE IB ENDOLEAK RECOMMENDED. 3. 1.9 CM NODULAR SOFT TISSUE IMPRESSING INTO THE BASE OF THE BLADDER FROM THE PROSTATE GLAND, SUSPEC T BPH. CORRELATE WITH PSA AND PATIENT'S SYMPTOMS. 4. ADDITIONAL 1.4 CM URETERAL THICKENING RIGHT POSTERIOR WALL OF THE BLADDER SHOWS NO SUSPICIOUS FILL ING DEFECT ON THE DELAYED BLADDER IMAGES. SUSPECT DENSITY TO RELATE TO THE URETERAL INSERTION HERE. C ONFIRM WITH NEGATIVE URINE CYTOLOGY.
== END | disposition home or self-care (01) ==
LOC: RADCTMAIN 10:37
PROVIDERS: ATTEND Internal Medicine
DX: I72.3 Aneurysm of iliac artery (principal); N32.89 Other specified disorders of bladder
CPT/HCPCS: 82565; 84520; 72193; 36415; Q9967

== ENCOUNTER 2021-12-01 10:25 | Day surgery (SDC) | payer MEDICARE ==
[2021-11-29 16:10] VITALS: BMI 23.6
[~2021-12-01 10:25] MED LIST changes: -ASPIRIN 325 MG TAB PO STA; +LACTATED RINGERS 1,000 ML IV SCH; -SODIUM CHLORIDE 0.9% 1,000 ML in EMPTY BAG 1 BAG IV ONE
[2021-12-01 10:50] VITALS: RESP 20; TEMP 97.8
[2021-12-01] MEDS ORDERED: LIDOCAINE 1% INJ 10MG/ML (20 ML MDV) ONE (11:01)
[2021-12-01] MEDS ORDERED: PROPOFOL 10 MG/ML 20 ML VIAL IV ONE (11:01)
--- NOTE | 2021-12-01 11:15 | P.PCN ---
Date of Procedure: 12/01/21 Procedure(s) Performed: tBRIEF HISTORY: Patient is a75 -year-old pleasant white male scheduled for an elective colonoscopy as a part of evaluation of prior history of colon polyps. Last colonoscopy was 5 years ago. PROCEDURE PERFORMED: Colonoscopy with biopsy. PREOPERATIVE DIAGNOSIS: History of Colon polyps. IV sedation per Anesthesia. PROCEDURE: After informed consent was obtained, the patient, was brought into the endoscopy unit. IV sedation was administered by Anesthesia under continuous monitoring. Digital rectal examination was normal. Initially the Olympus CF-160 flexible video colonoscope was then inserted in the rectum, gradually advanced into the cecum without any difficulty. Careful examination was performed as the scope was gradually being withdrawn. Ileocecal valve and the appendiceal orifice were visualized and appeared normal. Prep was excellent. Mucosa of the cecum, appeared normal. Ascending colon there was a 3 mm polyp that was removed by cold biopsy. Rest of the ascending colon, transverse colon, descending colon, sigmoid colon, and rectum appeared normal. Retroflexion was performed in the rectum and no lesions were seen. The patient tolerated the procedure well. IMPRESSION: 3 mm sessile ascending colon polyp status post cold biopsy Rest of the colon appeared. RECOMMENDATIONS: Findings of this examination were discussed with the patient as well as his family. He was advised to follow with the biopsy results. If the biopsy results adenoma he can have a repeat colonoscopy in 5 years
[2021-12-01 11:43] VITALS: BP 129/76; PULSE 60
== END 2021-12-01 11:55 | disposition home or self-care (01) ==
LOC: ORWHC2ENDO 10:25
PROVIDERS: ATTEND Internal Medicine Gastroenterology
DX: Z12.11 Encounter for screening for malignant neoplasm of colon (principal); D12.2 Benign neoplasm of ascending colon; Z86.010 Personal history of colon polyps; I25.10 Atherosclerotic heart disease of native coronary artery without angina pectoris; Z95.5 Presence of coronary angioplasty implant and graft; I25.2 Old myocardial infarction; E78.5 Hyperlipidemia, unspecified; I73.9 Peripheral vascular disease, unspecified; F17.290 Nicotine dependence, other tobacco product, uncomplicated; E07.9 Disorder of thyroid, unspecified; Z95.1 Presence of aortocoronary bypass graft; Z98.890 Other specified postprocedural states; Z79.02 Long term (current) use of antithrombotics/antiplatelets; Z79.82 Long term (current) use of aspirin; Z79.899 Other long term (current) drug therapy; Z79.890 Hormone replacement therapy; Z88.2 Allergy status to sulfonamides
CPT/HCPCS: 88305; 45380; J2001; J2704

== ENCOUNTER 2022-02-07 04:58 | Emergency (ER) | payer MEDICARE ==
--- NOTE | 2022-02-07 05:34 | ED ---
Male Urogenital HPI - General Chief complaint: Urogenital Stated complaint: Catheter issues Time Seen by Provider: 02/07/22 05:10 Source: patient Mode of arrival: ambulatory Limitations: no limitations - History of Present Illness Initial comments: This patient is 76-year-old man who presents with complaint that he is having urine leaking around the outside of his catheter. The patient states that it seems like the catheter has stopped draining into the bag and that he is being around the catheter. He states that there is a little bit of associated abdominal pain. The patient denies having fever or chills. No flank pain. He states that he would just like the catheter removed and he'll follow-up with his urologist Dr. rahbar. ENG Complaint: other -: hour(s) Radiation: none Severity: moderate Quality: dull Consistency: constant Improves with: none Worsens with: none - Related Data Home Medications Medication Instructions Recorded Confirmed Aspirin [Adult Low Dose Aspirin EC] 81 mg PO DAILY 12/18/15 11/29/21 Clopidogrel [Plavix] 75 mg PO DAILY 12/18/15 11/29/21 Lovastatin [Mevacor] 10 mg PO HS 12/01/17 11/29/21 Ergocalciferol [Vitamin D2 (1250 1,250 mcg PO TH 11/29/21 11/29/21 Mcg = 50123 Iu)] Levothyroxine Sodium 25 mcg PO DAILY 11/29/21 11/29/21 Allergies Allergy/AdvReac Type Severity Reaction Status Date / Time Sulfa (Sulfonamide Allergy Anaphylaxis Verified 02/07/22 05:13 Antibiotics) Review of Systems ROS Statement: Those systems with pertinent positive or pertinent negative responses have been documented in the HPI. ROS Other: All systems not noted in ROS Statement are negative. Constitutional: Denies: fever, chills Respiratory: Denies: dyspnea Cardiovascular: Denies: chest pain Gastrointestinal: Denies: abdominal pain, vomiting Musculoskeletal: Denies: back pain Skin: Denies: rash Past Medical History Past Medical History: Coronary Artery Disease (CAD), Hyperlipidemia, Myocardial Infarction ([place]), Thyroid Disorder, Vascular Disorder Additional Past Medical History / Comment(s): poor circulation both legs Last Myocardial Infarction Date:: 2013 History of Any Multi-Drug Resistant Organisms: None Reported Past Surgical History: Coronary Bypass/CABG, Heart Catheterization With Stent, Orthopedic Surgery, Tonsillectomy Additional Past Surgical History / Comment(s): total STENT x 2-3, repair of abdominal aortic aneurysm with stent, rt ankle surgery, aortogram,, CABG 23 yrs ago, iliac stent, COLONOSOCPY, Past Anesthesia/Blood Transfusion Reactions: Postoperative Nausea & Vomiting (PONV) Additional Past Anesthesia/Blood Transfusion Reaction / Comment(s): "hard time waking up" Date of Last Stent Placement:: 12/2016 Past Psychological History: No Psychological Hx Reported Smoking Status: Current every day smoker Past Alcohol Use History: None Reported Past Drug Use History: None Reported - Past Family History Father Additional Family Medical History / Comment(s): AORTIC ANEURYSM Mother Family Medical History: No Reported History Brother(s) Family Medical History: Cancer Additional Family Medical History / Comment(s): WITH HEART PROBLEMS General Exam Limitations: no limitations General appearance: alert, in no apparent distress Respiratory exam: Present: normal lung sounds bilaterally. Absent: respiratory distress, wheezes, rales, rhonchi, stridor Cardiovascular Exam: Present: regular rate, normal rhythm, normal heart sounds. Absent: systolic murmur, diastolic murmur, rubs, gallop GI/Abdominal exam: Present: soft. Absent: distended, tenderness, guarding, rebound, rigid, mass exam: Present: normal inspection Extremities exam: Present: normal inspection, normal capillary refill. Absent: pedal edema Back exam: Absent: CVA tenderness (R), CVA tenderness (L) Skin exam: Present: warm, dry, intact, normal color. Absent: rash Course Vital Signs 02/07/22 05:11 Temperature 98.6 F Pulse Rate 79 Respiratory 18 Rate Blood Pressure 148/86 O2 Sat by Pulse 98 Oximetry Medical Decision Making - Medical Decision Making Patient is 76-year-old man with Howard catheter following cystoscopy which has reportedly stopped draining. Nursing staff was attempting to change the catheter but the patient refused to have new catheter placed. He will follow with his urologist. We discussed appropriate follow-up and return parameters. Disposition Clinical Impression: Malfunction of Howard catheter Disposition: HOME SELF-CARE Condition: Good Instructions (If sedation given, give patient instructions): Howard Catheter Removal (DC) Is patient prescribed a controlled substance at d/c from ED?: No Referrals: Maria E Vargas MD [Primary Care Provider] - 1-2 days Rahbar,Vitor, MD [STAFF PHYSICIAN] - 1-2 days
[2022-02-07 06:11] VITALS: BP 154/84; PULSE 71; RESP 28; TEMP 98.9
== END 2022-02-07 06:10 | disposition home or self-care (01) ==
LOC: EC 04:58
DX: T83.091A Other mechanical complication of indwelling urethral catheter, initial encounter (principal); E78.5 Hyperlipidemia, unspecified; I25.10 Atherosclerotic heart disease of native coronary artery without angina pectoris; I25.2 Old myocardial infarction; E07.9 Disorder of thyroid, unspecified; F17.200 Nicotine dependence, unspecified, uncomplicated; Z79.02 Long term (current) use of antithrombotics/antiplatelets; Z79.890 Hormone replacement therapy; Z79.82 Long term (current) use of aspirin; Z79.899 Other long term (current) drug therapy; Z88.2 Allergy status to sulfonamides; Z95.1 Presence of aortocoronary bypass graft
CPT/HCPCS: 99283

== ENCOUNTER → 2022-07-05 | Outpatient (CLI) | payer MEDICARE ==
[2022-07-05 19:56] LABS: HCT 45.9 % (39.6-50.0); HGB 14.8 g/dL (13.0-17.0); MCH 28.6 pg (27.0-32.0); MCHC 32.2 g/dL (32.0-37.0); MCV 88.8 fL (80.0-97.0); Mean Platelet Volume 10.9 fL (9.5-12.2); NRBC Per 100 WBC 0 /100 WBCS (0.0-0.0); Platelet Count 151 X 10*3/uL (140-440); RBC 5.17 X 10*6/uL (4.40-5.60); RDW 15.9 % (11.5-14.5); WBC 10.14 X 10*3/uL (4.50-10.00)
[2022-07-05 20:32] LABS: African American GFR (CKD) 68.1 (60.0-200.0); Anion Gap 12.5 mmol/L (10.00-18.00); Blood Urea Nitrogen 19.5 mg/dL (9.0-27.0); Carbon Dioxide 24.5 mmol/L (20.0-27.5); Non-African American GFR(CKD) 58.8 (60.0-200.0); Potassium 4.5 mmol/L (3.5-5.5)
== END | disposition home or self-care (01) ==
LOC: LABPAT 11:46
PROVIDERS: ATTEND Internal Medicine Interventional Cardiology
DX: Z01.812 Encounter for preprocedural laboratory examination (principal); R07.9 Chest pain, unspecified
CPT/HCPCS: 80051; 82565; 84520; 85027

== ENCOUNTER 2022-07-07 07:15 | Day surgery (SDC) | payer MEDICARE ==
[~2022-07-07 07:15] MED LIST changes: +ALPRAZolam 0.25 MG TAB PO PRN; +ALPRAZolam 0.5 MG TAB PO PRN; +ASPIRIN 325 MG TAB PO STA; -LACTATED RINGERS 1,000 ML IV SCH; +NITROGLYCERIN SL TABS 0.4 MG TAB SUBLINGUAL PRN; +SODIUM CHLORIDE 0.9% 1,000 ML in EMPTY BAG 1 BAG IV SCH
[2022-07-07] MEDS ORDERED: SODIUM CHLORIDE 0.9% 1,000 ML IV ONE ×2 (07:24→08:24)
[2022-07-07 07:37] VITALS: RESP 16; TEMP 97
[2022-07-07] MEDS ORDERED: VERAPAMIL 2.5 MG/ML 2 ML AMP ONE (08:32)
[2022-07-07] MEDS ORDERED: MIDAZOLAM 2 MG/2 ML VIAL IV ONE (08:54)
[2022-07-07] MEDS ORDERED: LIDOCAINE 1% INJ 10MG/ML (30 ML VIAL-PF) SQ ONE (08:56)
[2022-07-07] MEDS ORDERED: IOPAMIDOL-370 125ML BTL INJ ONE (09:38)
[2022-07-07] MEDS ORDERED: IOPAMIDOL-250 100ML BTL INTRAARTER ONE (09:39)
[2022-07-07] MEDS ORDERED: IOPAMIDOL-370 100ML BTL INJ ONE (09:39)
[2022-07-07] MEDS ORDERED: RX INFO: IV CONTRAST WAS GIVEN 1 EACH MISC MISCELLANE PRN (09:39)
[2022-07-07] MEDS ORDERED: SODIUM CHLORIDE 0.9% 1,000 ML IV SCH (09:45)
[2022-07-07 16:11] VITALS: BP 134/72
[2022-07-07 16:27] VITALS: PULSE 52
[2022-07-07] MEDS ORDERED: ATORVASTATIN 10 MG TAB PO SCH (21:00)
[2022-07-08] MEDS ORDERED: LEVOTHYROXINE 25 MCG TAB PO SCH (06:30)
[2022-07-08] MEDS ORDERED: METOPROLOL SUCCINATE (ER) 25 MG TAB.ER.24H PO SCH (09:00)
[2022-07-08] MEDS ORDERED: ASPIRIN 81 MG PO SCH (09:00)
[2022-07-08] MEDS ORDERED: CLOPIDOGREL 75 MG TAB PO SCH (09:00)
--- NOTE | 2022-07-08 10:27 | P.PCN ---
Date of Procedure: 07/08/22 Operative Findings: CARDIAC CATHETERIZATION PERFORMING PHYSICIAN: Delmer Ruth MD, RPVI PROCEDURE PERFORMED: 1. Selective right and left coronary angiogram 2. Left heart catheterization 3. TURNER into LAD angiogram 4. Aortic root angiogram 5. Selective right common femoral artery angiogram INDICATION: Unstable angina in this 76-year-old gentleman was known coronary artery disease. The last heart catheterization revealed occluded LAD and patent TURNER to LAD and also severe disease involving the distal left main. The SVG to LCx at that point was stented. The RCA has mild disease only. He was seen in the office recently where he was experiencing symptoms of chest discomfort with exertion concerning for angina. He was started on anti-ischemic medication and he was brought today for an angiogram COMPLICATION: None APPROACH: Right common femoral artery LEVEL OF SEDATION: Moderate sedation length of 60 minutes PROCEDURE DESCRIPTION: After obtaining an informed consent, the patient was brought to cardiac laborer demolition. Local anesthesia was performed using lidocaine subcutaneously. The right common femoral artery was cannulated using Seldinger technique, the guidewire passed easily, following that we advanced a 6 Malagasy sheath dilator assembly, the wire and dilator were removed and sheath was flushed. Because the patient does have an aortic stent graft I exchanged my short sheath into a 45 cm sheath. The right iliac is extremely tortuous and 2 negotiate the tortuosity I placed a [address] up to the abdominal aorta. Selective right and left coronary angiogram using a 6-Malagasy JR4 and JL catheters. Following that we did left heart catheterization using 6-Malagasy pigtail catheter. The TURNER into LAD angiogram was performed using JR4 catheter Attempting engaging the SVG to OM was unsuccessful. Finally I did an aortic root angiogram which did not opacified the graft which is probably occluded The procedure was completed there was no complication. SELECTIVE CORONARY ANGIOGRAM: The right coronary artery: Is occluded in the midportion and fills by collateral from the left coronary s ystem Left main: Has critical lesion distally appears to be in the range of 60-70% and involving the ostial LCx The left circumflex: The ostial LCx has a critical lesion appeared to be in the range of 70%. The left anterior descending artery: The LAD is occluded in the proximal portion The TURNER to LAD is patent The SVG to OM was not opacified in spite of doing aortic root angiogram HEMODYNAMICS: The EDP was about 8 mmHg was no significant gradient across aortic valve CONCLUSION: 1. Severe disease involving the distal left main 2. Patent TURNER to LAD 3. Occluded SVG to LCx 4. Occluded right coronary artery POSTPROCEDURE MANAGEMENT: ELEVATOR RUNNER of the distal left main and proximal LCx to be performed. We did not perform the procedure because we're each hour maximum contrast use
[2022-07-13] MEDS ORDERED: ERGOCALCIFEROL 1,250 MCG (50,000 IU) CAPSULE PO SCH (09:00)
== END 2022-07-07 16:39 | disposition home or self-care (01) ==
LOC: CATHCVL 07:15
PROVIDERS: ATTEND Internal Medicine Interventional Cardiology
DX: I25.110 Atherosclerotic heart disease of native coronary artery with unstable angina pectoris (principal); Z95.1 Presence of aortocoronary bypass graft; Z95.820 Peripheral vascular angioplasty status with implants and grafts; E78.5 Hyperlipidemia, unspecified; I10 Essential (primary) hypertension; F17.210 Nicotine dependence, cigarettes, uncomplicated; Z98.890 Other specified postprocedural states; Z85.51 Personal history of malignant neoplasm of bladder; Z79.02 Long term (current) use of antithrombotics/antiplatelets; Z79.82 Long term (current) use of aspirin; Z79.890 Hormone replacement therapy; Z79.899 Other long term (current) drug therapy; Z88.2 Allergy status to sulfonamides
CPT/HCPCS: 93455; C1769 ×5; C1894 ×2; C1887; J2250; J2001; Q9966 ×2; Q9967 ×2

== ENCOUNTER 2022-07-20 08:53 | Day surgery (SDC) | payer MEDICARE ==
[2022-07-19 12:27] VITALS: BMI 23.3
[~2022-07-20 08:53] MED LIST changes: +ATORVASTATIN 80 MG TAB PO STA; +HEPARIN SODIUM,PORCINE 10,000 UNIT in SODIUM CHLORIDE 0.9% 1,000 ML IRRIGATION PRN; +HEPARIN SODIUM,PORCINE 2,500 UNIT in SODIUM CHLORIDE 0.9% 250 ML IRRIGATION PRN
[2022-07-20] MEDS ORDERED: SODIUM CHLORIDE 0.9% 1,000 ML IV ONE (09:05)
[2022-07-20] MEDS ORDERED: CLOPIDOGREL 75 MG TAB PO STA (09:09)
[2022-07-20 09:21] LABS: Basophils # (A) 0.1 k/uL (0-0.2); Basophils % (A) 1 %; Eosinophils # (A) 0.7 k/uL (0-0.7); Eosinophils % (A) 8 %; HGB 16.1 gm/dL (13.0-17.5); Lymphocytes # (A) 1.9 k/uL (1.0-4.8); Lymphocytes % (A) 22 %; MCH 29.8 pg (25.0-35.0); MCHC 33.5 g/dL (31.0-37.0); MCV 88.8 fL (80.0-100.0); Mean Platelet Volume 8.4; Monocytes # (A) 0.5 k/uL (0-1.0); Monocytes % (A) 6 %; Neutrophils # (A) 5.4 k/uL (1.3-7.7); Neutrophils % (A) 62 %; Platelet Count 165 k/uL (150-450); RBC 5.41 m/uL (4.30-5.90); RDW 14.5 % (11.5-15.5); WBC 8.7 k/uL (3.8-10.6)
[2022-07-20 09:44] LABS: Potassium 4.2 mmol/L (3.5-5.1)
[2022-07-20] MEDS ORDERED: VERAPAMIL 2.5 MG/ML 2 ML AMP ONE (11:18)
[2022-07-20] MEDS ORDERED: HEPARIN SODIUM 1,000 UN/ML (10ML VL) ONE (11:20)
[2022-07-20] MEDS ORDERED: MIDAZOLAM 2 MG/2 ML VIAL IV ONE ×2 (11:25→11:45)
[2022-07-20] MEDS ORDERED: fentaNYL (PF) 50 MCG/ML 2 ML AMP ONE (11:26)
[2022-07-20] MEDS ORDERED: LIDOCAINE 1% INJ 10MG/ML (30 ML VIAL-PF) SQ ONE (11:27)
[2022-07-20] MEDS ORDERED: VERAPAMIL SYRINGE (5 MG/10 ML) INTRAARTER ONE (11:29)
[2022-07-20] MEDS: HEPARIN SODIUM 1,000 UN/ML (10ML VL) IV ONE ×4 (11:32→12:29)
[2022-07-20] MEDS ORDERED: fentaNYL (PF) 50 MCG/ML 2 ML AMP IV ONE (11:35)
[2022-07-20] MEDS ORDERED: HYDROmorphone 0.5 MG/0.5 ML SYRINGE IVP ONE (12:02)
[2022-07-20] MEDS ORDERED: CLOPIDOGREL 75 MG TAB ONE (12:20)
[2022-07-20] MEDS ORDERED: ZOLPIDEM 5 MG TAB PO PRN (12:28)
[2022-07-20] MEDS ORDERED: ATROPINE SULFATE 0.1 MG/ML 10ML SYRINGE IV PRN (12:28)
[2022-07-20] MEDS ORDERED: MAG HYDROX/AL HYDROX/SIMETH 30 ML CUP PO PRN (12:28)
[2022-07-20] MEDS ORDERED: RX INFO: IV CONTRAST WAS GIVEN 1 EACH MISC MISCELLANE PRN (12:28)
[2022-07-20] MEDS ORDERED: CLOPIDOGREL 75 MG TAB PO ONE (12:29)
[2022-07-20] MEDS ORDERED: IOPAMIDOL-370 125ML BTL INJ ONE (12:29)
--- NOTE | 2022-07-20 12:31 | P.PCN ---
Date of Procedure: 07/20/22 Operative Findings: PERCUTANEOUS CORONARY INTERVENTION Performing physician Delmer Ruth M.D. Procedure Performed: 1. Successful stenting of the distal left main and proximal left circumflex using 3.5 x 23 mm Xience drug-eluting stent with an excellent angiographic results. 2. Atherectomy of the left main and left circumflex coronary artery 3. Intra-vascular ultrasound of the left main and left circumflex coronary artery 4. Shockwave balloon of the left main coronary artery Indication: This is a 76-year-old gentleman with known coronary artery disease and prior coronary artery bypass grafting was seen in the office recently for chest discomfort concerning for angina. He underwent a heart catheterization and that revealed severe triple-vessel coronary artery disease with patent TURNER to LAD in the occlusion of all 3 grafts. He was brought today to undergo PCI of the distal left main/proximal left circumflex Approach: Right radial art Complications: None Level of Sedation: Moderate with a sedation length of 55 minute Procedure Discussion: After obtaining an informed consent the patient was brought to the cardiac director geophysical laboratory. The right radial artery was cannulated using micropuncture technique, the micropuncture wire passed easily then I placed a 6-Irish sheath in the right radial artery. At that point anticoagulation was initiated using heparin would continue as is a 16 monitoring throughout the procedure. After that I did engage the left main using JL 3.5 guiding catheter. I did wire the left main using a long whisper wire. At that point attempting advancing the IVUS catheter to assess the lesion calcification status and need to do atherectomy before was unsuccessful. The antral vascular ultrasound catheter was only advanced to the left main but did not make the turn toward the left circumflex coronary artery. That from the left main and a vascular ultrasound I can tell there is significant amount of eccentric calcifications. At that point I decided to do atherectomy. I did exchange my whisper wire over my oh catheter into the atherectomy wire. We get atherectomy of the distal left main and proximal left circumflex and also the ostial left main using 3 runs of slow speed. Subse quently balloon angioplasty was performed initially using 2.0 mm balloon but the balloon was unable to open the ostial left main. At that point I decided to do shockwave balloon. I was able to do balloon angioplasty using 3.0 x 15 mm shockwave: Which was inflated under 14 augustus for about 30 seconds. After that I was able to advance a 3.5 x 23 mm stent where the stent was positioned in the left main coronary artery and the proximal left circumflex coronary artery making sure it covered the ostial left main. The stent was inflated under 8 augustus for 20 seconds. Then the mid and proximal portion of the stent was postdilated using 4 mm noncompliant balloon which was inflated under 14 augustus for 20 seconds. The final angiogram showed excellent angiographic results and the procedure was completed without any complication Postprocedure Management: 1. Dual antiplatelet therapy using aspirin and Plavix for at least 6 months and preferably year 2. Process of cholesterol control 3. Skin factors modification
[2022-07-20] MEDS ORDERED: ATORVASTATIN 10 MG TAB PO SCH (21:00)
[2022-07-20 23:57] VITALS: RESP 16
[2022-07-21] MEDS ORDERED: LEVOTHYROXINE 25 MCG TAB PO SCH (06:30)
--- NOTE | 2022-07-21 08:39 | P.DS ---
Providers Attending physician: Delmer Ruth Consults: 07/20/22 12:28 Consult Physician Routine Consulting Provider: [facility] Reason/Comments: Post Interventional Patient Do you want consulting provider notified?: Already Contacted Primary care physician: [facility] Course: The patient is a pleasant 76-year-old female patient who underwent yesterday successful angioplasty of the left main and LCx with a good angiographic results from right radial approach. He was seen this morning. He is asymptomatic. He is going to be discharged home on dual antiplatelet therapy and I'll follow-up with the patient in a week in the office Plan - Discharge Summary Discharge Rx Participant: No New Discharge Prescriptions: Continue Clopidogrel [Plavix] 75 mg PO DAILY Aspirin [Adult Low Dose Aspirin EC] 81 mg PO DAILY Lovastatin [Mevacor] 10 mg PO HS Ergocalciferol [Vitamin D2 (1250 Mcg = 89994 Iu)] 1,250 mcg PO WE Metoprolol Succinate (ER) [Toprol XL] 25 mg PO DAILY Levothyroxine Sodium 25 mcg PO DAILY Discharge Medication List Aspirin [Adult Low Dose Aspirin EC] 81 mg PO DAILY 12/18/15 [History] Clopidogrel [Plavix] 75 mg PO DAILY 12/18/15 [History] Lovastatin [Mevacor] 10 mg PO HS 12/01/17 [History] Ergocalciferol [Vitamin D2 (1250 Mcg = 76621 Iu)] 1,250 mcg PO WE 11/29/21 [History] Levothyroxine Sodium 25 mcg PO DAILY 11/29/21 [History] Metoprolol Succinate (ER) [Toprol XL] 25 mg PO DAILY 07/06/22 [History] Follow up Appointment(s)/Referral(s): Delmer Ruth MD [STAFF PHYSICIAN] - 07/29/22 2:45 pm
[2022-07-21 08:40] VITALS: BP 124/73; PULSE 56; TEMP 97.7
[2022-07-21 08:50] LABS: Basophils # (A) 0.1 k/uL (0-0.2); Basophils % (A) 1 %; Eosinophils # (A) 0.5 k/uL (0-0.7); Eosinophils % (A) 7 %; HCT 42.2 % (39.0-53.0); HGB 14.1 gm/dL (13.0-17.5); Lymphocytes # (A) 1.7 k/uL (1.0-4.8); Lymphocytes % (A) 22 %; MCH 29.3 pg (25.0-35.0); MCHC 33.4 g/dL (31.0-37.0); MCV 87.8 fL (80.0-100.0); Mean Platelet Volume 8.3; Monocytes # (A) 0.4 k/uL (0-1.0); Monocytes % (A) 6 %; Neutrophils # (A) 4.8 k/uL (1.3-7.7); Neutrophils % (A) 64 %; Platelet Count 136 k/uL (150-450); RBC 4.81 m/uL (4.30-5.90); RDW 14.6 % (11.5-15.5); WBC 7.5 k/uL (3.8-10.6)
[2022-07-21 08:59] LABS: Calcium 8.7 mg/dL (8.4-10.2)
[2022-07-21] MEDS ORDERED: CLOPIDOGREL 75 MG TAB PO SCH (09:00)
[2022-07-21] MEDS ORDERED: ASPIRIN 81 MG PO SCH (09:00)
[2022-07-21] MEDS ORDERED: METOPROLOL SUCCINATE (ER) 25 MG TAB.ER.24H PO SCH (09:00)
[2022-07-27] MEDS ORDERED: ERGOCALCIFEROL 1,250 MCG (50,000 IU) CAPSULE PO SCH (09:00)
== END 2022-07-21 11:42 | disposition home or self-care (01) ==
LOC: CATHCVL 08:53 → 3SCARD 14:53 → CATHCVL 07-21 11:42
PROVIDERS: ATTEND Internal Medicine Interventional Cardiology
DX: I25.10 Atherosclerotic heart disease of native coronary artery without angina pectoris (principal); Z95.5 Presence of coronary angioplasty implant and graft; Z88.2 Allergy status to sulfonamides; Z88.1 Allergy status to other antibiotic agents
CPT/HCPCS: 92978; 0715T; 80048 ×2; 85025 ×2; 92933; C1769 ×4; C9602; C1887 ×2; C1894; C1725 ×2; C1753; C1724; C1761; J2250; J2001; J3010; J1644; J1170; Q9967

== ENCOUNTER → 2023-11-10 | Outpatient (CLI) | payer MEDICARE ==
--- NOTE | 2023-11-10 11:12 | XR ---
EXAMINATION TYPE: XR chest 2V DATE OF EXAM: 11/10/2023 COMPARISON: 12/22/2013 TECHNIQUE: PA and lateral views submitted. HISTORY: Dizziness FINDINGS: The lungs are clear and there is no pneumothorax, pleural effusion, or focal pneumonia. Heart size normal and no overt failure. Osseous structures demonstrate hypertrophic and degenerative changes of the spine. Post median sternotomy. There is tortuosity of the aorta. Hyperexpansion of the lungs sugg estive of COPD. AC joint arthropathy. IMPRESSION: 1. No acute process.
[2023-11-10 11:30] LABS: African American GFR (CKD) 65 (>60 ml/min/1.73 sqM); Blood Urea Nitrogen 28 mg/dL (9-20); Non-African American GFR(CKD) 56 (>60 ml/min/1.73 sqM)
--- NOTE | 2023-11-10 20:00 | CT ---
EXAMINATION TYPE: CT angio abd aorta w/Runoff CT DLP: 1655.4 mGycm, Automated exposure control for dose reduction was used. DATE OF EXAM: 11/10/2023 2:06 PM COMPARISON: 05/11/2020. CLINICAL INDICATION:Male, 77 years old with history of I73.9 PERIPHERAL VASCULAR DISEASE R42 DIZZINES S, PAD f/u TECHNIQUE: Multiple thin slice sub-millimeter images were obtained after administration of contrast. 3-D reconstructed images and maximum intensity projection images were obtained. CT angio abd aorta w /Runoff CT Contrast: Contrast used:80 mL of Isovue 370 with IV Contrast, Oral contrast used: None FINDINGS: CTA Abdomen and pelvis: The descending thoracic aorta is within normal limits for size is scattered a therosclerosis. The origin of the celiac axis, superior mesenteric artery bilateral renal arteries ar e patent. There is a stent grafts extend across the origins of the renal arteries patent. A biiliac s tent graft are present with excluded lumen of the distal right common iliac artery on the measuring u p to 4.8 cm. Bilateral common iliac stent grafts are patent. CTA Lower extremities: Right: Scattered atherosclerosis throughout the lower extremity arterial vasculature. The common femo ral and superficial femoral arteries are patent. . Superficial femoral artery demonstrates high-grade stenosis near the popliteal hiatus up to 50 % series 5 image 332. The popliteal artery is patent. An terior and posterior tibial arteries as well as the peroneal artery are patent. Anterior tibial arter y is diminutive. Anterior and posterior tibial arteries cross the ankle. Left: Scattered atherosclerosis throughout the lower extremity arterial vasculature. The common femor al and superficial femoral arteries are patent. Superficial femoral artery demonstrates high-grade st enosis near the popliteal hiatus up to 90% series 5 image 301. The popliteal artery is patent. Anteri or and posterior tibial arteries as well as the peroneal artery are patent. Anterior tibial artery is diminutive. Anterior and posterior tibial arteries cross the ankle. LOWER CHEST: Chronic interstitial lung changes with peripheral opacities are seen throughout the lung s. Heart is mildly enlarged for size. No evidence of focal consolidation, pneumothorax or pleural eff usion. LIVER: Unremarkable GALLBLADDER AND BILE DUCTS: Unremarkable. PANCREAS: Unremarkable. SPLEEN: Unremarkable. ADRENAL GLANDS: Unremarkable. KIDNEYS AND URETERS: No evidence of hydronephrosis or renal calculus. The ureters are unremarkable. PELVIS BLADDER: Unremarkable REPRODUCTIVE: Unremarkable. ABDOMEN & PELVIS STOMACH AND BOWEL: No evidence of bowel obstruction. PERITONEUM: No evidence of pneumoperitoneum or free fluid.1 MUSCULOSKELETAL: Mild disc degeneration changes are present throughout the thoracolumbar spine. LYMPH NODES: No gross evidence for lymphadenopathy. SOFT TISSUE/ABDOMINAL WALL: Fat-containing umbilical hernia. IMPRESSION 1. Bilateral common iliac artery stent grafts are patent. 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 2. Stent graft at the level of the renal arteries is patent. The renal arteries are patent. 3. Left superficial femoral artery high-grade stenosis distally with up to up to 90%. 4. Right superficial femoral artery focal stenosis distally with up to 50%. 5. There are at least 2 vessels crossing the ankles.
== END | disposition home or self-care (01) ==
LOC: RADCTMAIN 10:36
PROVIDERS: ATTEND Internal Medicine Interventional Cardiology
DX: I72.3 Aneurysm of iliac artery (principal); I70.203 Unspecified atherosclerosis of native arteries of extremities, bilateral legs; I74.5 Embolism and thrombosis of iliac artery; R42 Dizziness and giddiness; Z95.828 Presence of other vascular implants and grafts
CPT/HCPCS: 82565; 84520; 71046; 75635; 36415; Q9967

== ENCOUNTER → 2024-06-18 | Outpatient (CLI) | payer MEDICARE ==
[2024-06-18 13:08] LABS: African American GFR (CKD) 68 (>60 ml/min/1.73 sqM); Blood Urea Nitrogen 21 mg/dL (9-20); Non-African American GFR(CKD) 59 (>60 ml/min/1.73 sqM)
--- NOTE | 2024-06-18 15:25 | CT ---
EXAMINATION TYPE: CT abdomen pelvis w con DATE OF EXAM: 06/18/2024 COMPARISON: 11/10/2023 HISTORY: 78-year-old male abdominal pain and bloating TECHNIQUE: Contiguous axial scanning of the abdomen and pelvis following administration of 100 ml Iso verónica 300 IV contrast. Delayed images through the kidneys and coronal/sagittal reconstructions perform ed. CT DLP: 639.60 mGycm Automated exposure control for dose reduction was used. FINDINGS: Median sternotomy wires. Heart normal size without pericardial effusion. Moderate emphysematous changes in the visualized lower lungs. Patchy subpleural reticular and groundg lass change persists in the lower lungs but there is new moderate right pleural effusion and right ba silar patchy opacity. Possible abnormal opacity in the right infrahilar region measuring at least 2.7 cm. No diffuse hepatic hypodense lesions throughout with fairly heavy burden. Portal venous system is pat ent. There is some periportal edema present. No biliary ductal dilatation. Small duodenal diverticula measuring 1.6 cm projecting in the pancreatic head region. The gallbladder is collapsed but with wall thickening likely due to third spacing. 2.2 cm centrally located cyst right kidney. No suspicious renal lesion. Mild right-sided hydroureter and right-sided extrarenal pelvis are unchanged. Mildly dilated ureter extends down to the UVJ. No significant stool burden. Sigmoid diverticulosis. The spleen and pancreas are within normal limits. No dilated small bowel or free air. No obvious mesenteric or retroperitoneal adenopathy Aortobiiliac endovascular stent graft is demonstrated. The infrarenal mashpee sac is dilated up to 5.1 cm versus 4.9 cm, previously. The [place] sac of the right common iliac artery severely dilated up to 5.4 cm versus 5.2 cm, previous ly. Similar curvilinear high density within the [place] sac here suggesting chronic calcification. An additional distal right common iliac and right external iliac artery stent have been placed in the in terval. Mild circumferential bladder wall thickening. Slight trabeculated bladder wall contour. Nodule projec ting into the bladder base measuring 2 cm from a mildly hypertrophied prostate gland which measures 4 .2 cm wide. There is mild pelvic free fluid. No pelvic lymphadenopathy seen. Bones: Moderate fibrotic change in the lumbar spine. Degenerative grade 1 retrolisthesis L2-L5 levels . IMPRESSION: 1. NEW MODERATE RIGHT PLEURAL EFFUSION WITH ADJACENT ATELECTASIS AND/OR INFILTRATE. 2. POSSIBLE ABNORMAL OPACITY PARTIALLY VISUALIZED IN THE RIGHT INFRAHILAR REGION. FURTHER DEDICATED C ONTRAST-ENHANCED CHEST evaluation to exclude underlying lymphadenopathy/neoplasm. 3. New, diffuse hypodense lesions throughout the liver suggestive of metastatic disease. 4. Aortobiiliac endovascular stent graft redemonstrated. Interval new stent placement within the righ t common and right external iliac arteries. Abdominal aortic mash[place] sac may be minimally larger at 5. 1 cm versus 4.9 cm, previously. Right common iliac artery mashpee sac minimally minimally larger as we ll at 5.4 cm versus 5.2 cm, previously. 5. Correlate for symptoms of BPH given focal median lobe hypertrophy. Some asymmetric prominence to t he right ureter is unchanged. [facility], Workstation: ANA MARIA, 06/18/2024 3:23 PM
== END | disposition home or self-care (01) ==
LOC: RADCTMAIN 12:02
PROVIDERS: ATTEND Internal Medicine
DX: R10.31 Right lower quadrant pain
CPT/HCPCS: 36415; 74177; 82565; 84520

== ENCOUNTER 2024-06-23 15:31 | Emergency (ER) | payer MEDICARE ==
[2024-06-23 15:36] VITALS: TEMP 97.5
--- NOTE | 2024-06-23 16:28 | ED ---
Chest Pain HPI - General Chief Complaint: Chest Pain Stated Complaint: chest pain Time Seen by Provider: 06/23/24 15:59 Source: patient, RN notes reviewed Mode of arrival: wheelchair Limitations: no limitations - History of Present Illness Initial Comments: This is a 78-year-old male who presents to the emergency department for chest pain. States that it started 3 to 4 days ago. Pain goes across his chest, into his back, and into both sides of his jaw. Describes the pain as a pressure sensation. He does have a substantial cardiac history including a CABG and stents. He does not take nitroglycerin at home. He does report some nausea as well as some feelings of heartburn. Unsure if this feels like prior cardiac chest pains or not. Additionally, he has had some increasing shortness of breath, swelling in his extremities, and abdominal pain. Abdominal pain is worse in the right lower and upper quadrant. Additionally, he has also develop ed a cough with occasional sputum production. MD Complaint: chest pain - Related Data Home Medications Medication Instructions Recorded Confirmed Aspirin [Adult Low Dose Aspirin EC] 81 mg PO DAILY 12/18/15 06/23/24 Clopidogrel [Plavix] 75 mg PO DAILY 12/18/15 06/23/24 Lovastatin [Mevacor] 10 mg PO HS 12/01/17 06/23/24 Levothyroxine Sodium 25 mcg PO DAILY 11/29/21 06/23/24 Metoprolol Succinate (ER) [Toprol 25 mg PO DAILY 07/06/22 06/23/24 XL] Albuterol Sulfate [Albuterol 2 puff INHALATION RT-Q4H PRN 06/23/24 06/23/24 Sulfate Hfa] Lidocaine 4% Patch 1 patch TRANSDERM DAILY PRN 06/23/24 06/23/24 Simethicone [Gas-X] 125 mg PO DAILY PRN 06/23/24 06/23/24 Tamsulosin HCl [Flomax] 0.4 mg PO DAILY 06/23/24 06/23/24 traMADol HCL 50 mg PO Q6H PRN 06/23/24 06/23/24 Allergies Allergy/AdvReac Type Severity Reaction Status Date / Time Sulfa (Sulfonamide Allergy Anaphylaxis Verified 06/23/24 15:36 Antibiotics) Review of Systems ROS Statement: Those systems with pertinent positive or pertinent negative responses have been documented in the HPI. ROS Other: All systems not noted in ROS Statement are negative. Past Medical History Past Medical History: Coronary Artery Disease (CAD), Cancer, Hyperlipidemia, Hypertension, Myocardial Infarction (PR), Prostate Disorder, Thyroid Disorder, Vascular Disorder Additional Past Medical History / Comment(s): poor circulation both legs, bladder cancer , had scrapping of bladder then 6 chemo tx. arthritis joints. enlarged prostate, ? sleep apnea- no testing, SQUAMOUS CELL CANCER, Last Myocardial Infarction Date:: 2013 History of Any Multi-Drug Resistant Organisms: None Reported Past Surgical History: Coronary Bypass/CABG, Heart Catheterization With Stent, Orthopedic Surgery, Tonsillectomy Additional Past Surgical History / Comment(s): HEART CATH STENT x 2-3, repair of abdominal aortic aneurysm with stent, rt ankle surgery, aortogram,, CABG 25 yrs ago, iliac stent, COLONOSOCPIES, Past Anesthesia/Blood Transfusion Reactions: Previous Problems w/ Anesthesia Additional Past Anesthesia/Blood Transfusion Reaction / Comment(s): "hard time waking up" Date of Last Stent Placement:: 12/2016 Past Psychological History: No Psychological Hx Reported Smoking Status: Current every day smoker Past Alcohol Use History: None Reported Past Drug Use History: None Reported - Past Family History Father Family Medical History: Coronary Artery Disease (CAD) Mother Family Medical History: No Reported History Brother(s) Family Medical History: Cancer Additional Family Medical History / Comment(s): mesothelioma , another brother WITH HEART PROBLEMS General Exam Limitations: no limitations General appearance: alert, in no apparent distress Head exam: Present: atraumatic, normocephalic, normal inspection Respiratory exam: Present: decreased breath sounds, prolonged expiratory Cardiovascular Exam: Present: regular rate, normal rhythm, normal heart sounds. Absent: systolic murmur, diastolic murmur, rubs, gallop, clicks GI/Abdominal exam: Present: soft, tenderness (diffuse), normal bowel sounds. Absent: distended Neurological exam: Present: alert, oriented X3, CN II-XII intact Psychiatric exam: Present: normal affect, normal mood Course Vital Signs 06/23/24 06/23/24 06/23/24 15:33 16:46 18:10 Temperature 97.5 F L Pulse Rate 103 H 98 98 Respiratory 28 H 22 22 Rate Blood Pressure 151/81 125/70 113/66 O2 Sat by Pulse 91 L 94 L 94 L Oximetry 06/23/24 19:20 Temperature Pulse Rate 94 Respiratory 20 Rate Blood Pressure 110/67 O2 Sat by Pulse 94 L Oximetry Chest Pain MDM - MDM This is a 78-year-old male who presents to the emergency department for chest pain and abdominal pain. Was pt. sent in by a medical professional or institution? @ -No Did you speak to anyone other than the patient for history? @ -No Did you review nursing and triage notes? @ -Yes, and I agree, it is accurate with regards to the patient's symptoms. Were old charts reviewed? @ -CT scan of the abdomen and pelvis from 06/18/2024 demonstrating a new moderate right pleural effusion, an abnormal opacity partially visualized in the right perihilar region, and diffuse hypodense lesions throughout the liver suggestive of metastasis. Differential Diagnosis? @ -Differential Chest Pain: Stable Angina, Unstable Angina, STEMI, NSTEMI Aortic Dissection, Pneumothorax, Musculoskeletal, Esophageal Spasm GERD, Cholecystitis, Pancreatitis, Zoster, this is not meant to be an all-inclusive list. EKG interpreted by me (3pts min.)? @ -EKG interpreted by me demonstrating the following: Sinus rhythm. Ventricular rate 96 bpm, KS interval 139 ms, QRS duration 94 ms, QTc 416 ms. X-rays interpreted by me (1pt min.)? @ -Chest x-ray obtained, my interpretation identifies no localized consolidations or infiltrates. CT interpreted by me (1pt min.)? @ -CTA of the chest obtained. My interpretation identifies no evidence of a pulmonary embolus. CT scan of the abdomen and pelvis obtained. My interpretation identifies no dilation of the bowel loops. U/S interpreted by me (1pt. min.)? @ -Not obtained What testing was considered but not performed? (CT, X-rays, U/S, labs)? Why? @ -None What meds were considered but not given? Why? @ -None Did you discuss the management of the patient with other professionals? @ -Yes, Dr. Vargas, patient's PCP, who requested transfer to facility with GI available due to the elevated bilirubin and diffuse hepatic metastatic disease. Dr. Colon accepts the patient as an ED to ED transfer at [facility] Did you reconcile home meds? @ -No Was smoking cessation discussed for >3mins.? @ -No Was critical care preformed (if so, how long)? @ -No Were there social determinants of health that impacted care today? How? (Homelessness, low income, unemployed, alcoholism, drug addiction, t ransportation, low edu. Level, literacy, decrease access to med. care, halfway, rehab)? @ -No Was there de-escalation of care discussed even if they declined? (Discuss DNR or withdrawal of care, Hospice)? @ -No What co-morbidities impacted this encounter? (DM, HTN, Smoking, COPD, CAD, Cancer, CVA, Hep., AIDS, mental health diagnosis, sleep apnea, morbid obesity)? @ -CAD, HLD, HTN Was patient admitted / discharged? @ -Transferred. Lab work demonstrates elevated LFTs with a bilirubin of 5.2, AST of 723, ALT of 271, and alkaline phosphatase of 763. Troponin 0.026. BNP 1200. He is also hyponatremic with a sodium of 125. COVID, influenza, and RSV testing negative. Urinalysis negative for signs of infection. Chest x-ray reveals no acute process. CTA of the chest obtained revealing no evidence of a pulmonary embolism. He does have a moderate right-sided pleural effusion as well as mediastinal and hilar adenopathy concerning for underlying metastatic disease. CT scan of the abdomen and pelvis demonstrates stable exam when compared with 1 week ago demonstrating diffuse suspected hepatic disease and trace intra-abdominal ascites. Findings discussed with the patient. He is not currently being treated for cancer. He does have a history of both bladder and skin cancer. He had a CT scan demonstrating this a week ago, and was referred to oncology. Discussed with patient's PCP admission for chest pain rule out and hem/onc evaluation. However, given the liver involvement with abdominal pain, obstruction cannot necessarily be excluded and it was requested patient be transferred to a facility with GI available in the event any intervention is needed on their part. Patient transferred to [facility] via EMS as an ED to ED transfer. Dr. Colon is the accepting ED physician. Case discussed with ED attending, Dr. Alvarenga. Undiagnosed new problem with uncertain prognosis? @ -None Drug Therapy requiring intensive monitoring for toxicity (Heparin, Nitro, Insulin, Cardizem)? @ -None Were any procedures done? @ -None Diagnosis/symptom? @ -Abdominal pain, chest pain, shortness of breath, transaminitis, liver mets Acute, or Chronic, or Acute on Chronic? @ -Acute Uncomplicated (without systemic symptoms) or Complicated (systemic symptoms)? @ -Complicated Side effects of treatment? @ -None Exacerbation, Progression, or Severe Exacerbation] @ -Not applicable Poses a threat to life or bodily function? @ -Yes, can lead to Disposition Clinical Impression: Transaminitis, Abdominal pain, Chest pain, Metastasis to liver of unknown origin Disposition: OTHER INSTITUTION NOT DEFINED Referrals: Maria E Vargas MD [Primary Care Provider] - 1-2 days - Out of Hospital Transfer - Req. Specs Out of Hospital Transfer - Requested Specifics: Other Emergency Center ([facility])
[2024-06-23 16:36] LABS: Anisocytosis Slight; Basophils % (A) 0 %; Eosinophils % (A) 0 %; HCT 47.3 % (39.0-53.0); HGB 15.2 gm/dL (13.0-17.5); Lymphocytes # (A) 0.7 k/uL (1.0-4.8); Lymphocytes % (A) 7 %; MCH 28.3 pg (25.0-35.0); MCHC 32.2 g/dL (31.0-37.0); Mean Platelet Volume 7.8; Monocytes # (A) 0.7 k/uL (0-1.0); Monocytes % (A) 7 %; Neutrophils # (A) 8.5 k/uL (1.3-7.7); Neutrophils % (A) 84 %; Platelet Count 169 k/uL (150-450); RBC 5.38 m/uL (4.30-5.90); RDW 16.4 % (11.5-15.5); WBC 10.1 k/uL (3.8-10.6)
[2024-06-23] MEDS: SODIUM CHLORIDE 0.9% 1,000 ML IV STA (16:36)
[2024-06-23] MEDS: ASPIRIN 81 MG PO STA (16:38)
[2024-06-23] MEDS: ONDANSETRON 4 MG/2 ML VIAL IVP STA (16:41)
[2024-06-23] MEDS: FAMOTIDINE 20 MG/2 ML VIAL IV STA (16:42)
[2024-06-23] MEDS: PANTOPRAZOLE 40 MG/10 ML VIAL IVP STA (16:45)
[2024-06-23 16:46] LABS: INR 1.7 (<1.2); Partial Thromboplastin Time 31.1 sec (22.0-30.0); Prothrombin Time 17.5 sec (10.0-12.5)
[2024-06-23 16:47] LABS: African American GFR (CKD) 62 (>60 ml/min/1.73 sqM); Albumin 3.4 g/dL (3.5-5.0); Alkaline Phosphatase 763 U/L (38-126); Amylase 51 U/L (30-110); Anion Gap 16 mmol/L; Blood Urea Nitrogen 28 mg/dL (9-20); Calcium 9.3 mg/dL (8.4-10.2); Carbon Dioxide 15 mmol/L (22-30); Chloride 94 mmol/L (98-107); Glucose 104 mg/dL (74-99); Lipase 363 U/L (23-300); Magnesium 1.9 mg/dL (1.6-2.3); Non-African American GFR(CKD) 54 (>60 ml/min/1.73 sqM); Potassium 4.6 mmol/L (3.5-5.1); Sodium 125 mmol/L (137-145); Total Bilirubin 5.2 mg/dL (0.2-1.3); Total Protein 6.1 g/dL (6.3-8.2)
[2024-06-23] MEDS: NITROGLYCERIN SL TABS 0.4 MG TAB SUBLINGUAL STA (16:49)
[2024-06-23 16:55] LABS: NT-Pro-B-Type Natriuretic Pept 1200 pg/mL
[2024-06-23 16:57] LABS: ALT 271 U/L (4-49); AST 723 U/L (17-59)
[2024-06-23 17:05] LABS: Appearance,Urine Clear (Clear); Bilirubin,Urine 1+ (Negative); Blood,Urine Negative (Negative); Color,Urine Dark Yellow; Glucose,Urine (UA) Negative (Negative); Hyaline Casts,Urine 10 /lpf (0-2); Ketones,Urine Trace (Negative); Leukocyte Esterase,Urine Negative (Negative); Mucus,Urine Occasional /hpf; Nitrite,Urine Negative (Negative); PH, Urine 5.5 (5.0-8.0); Protein,Urine 1+ (Negative); RBC,Urine 1 /hpf (0-5); Specific Gravity,Urine 1.025 (1.001-1.035); Squamous Epithelial Cell,Urine <1 /hpf (0-4); WBC,Urine 2 /hpf (0-5)
--- NOTE | 2024-06-23 17:08 | XR ---
EXAMINATION TYPE: XR chest 2V DATE OF EXAM: 06/23/2024 5:03 PM CLINICAL INDICATION:Male, 78 years old with history of Chest Pain; [facility] COMPARISON: Chest radiographs from 11/10/2023 TECHNIQUE: XR chest 2V Frontal and lateral views of the chest. FINDINGS: Lungs/Pleura: There is no evidence of pleural effusion, focal consolidation, or pneumothorax. Right hemidiaphragm is elevated. Pulmonary vascularity: Unremarkable. Heart/mediastinum: Cardiomediastinal silhouette is unremarkable. Musculoskeletal: No acute osseous pathology. Midline sternotomy wires are noted. IMPRESSION: No acute cardiopulmonary disease/process. [facility], , 06/23/2024 5:06 PM
--- NOTE | 2024-06-23 17:49 | CT ---
EXAMINATION TYPE: CT abdomen pelvis w con CT DLP: 1229.5 mGycm, Automated exposure control for dose reduction was used. DATE OF EXAM: 06/23/2024 5:36 PM COMPARISON: CT abdomen pelvis most recent from 06/18/2024 CLINICAL INDICATION:Male, 78 years old with history of Abdominal pain, acute, nonlocalized; ELISABETH, ches t pain and abdominal pain TECHNIQUE: Axial CT of the abdomen and pelvis. Sagittal and coronal reformats were created on a [employer] workstation. Contrast used: 70 mL of Isovue 370 with IV Contrast, (none if empty) Oral contrast used: without Oral Contrast (none if empty) FINDINGS: LOWER CHEST: See dedicated CT chest ABDOMEN LIVER: There is redemonstration of diffuse hypoattenuating lesions noted throughout the liver parench yma, not significantly changed in the interval. GALLBLADDER AND BILE DUCTS: The gallbladder wall appears thickened, but stable. PANCREAS: Unremarkable. SPLEEN: Unremarkable. ADRENAL GLANDS: Unremarkable. KIDNEYS AND URETERS: No evidence of hydronephrosis or renal calculus. The ureters are unremarkable. PELVIS BLADDER: Unremarkable REPRODUCTIVE: Nodular superior appearance of the prostate. ABDOMEN & PELVIS STOMACH AND BOWEL: Stomach and duodenum are unremarkable. No evidence of bowel obstruction. PERITONEUM/RETROPERITONEUM: Trace simple fluid is noted within the pelvis. VASCULATURE: Redemonstrated aortobiiliac endovascular stent graft. The infrarenal abdominal aortic an eurysm is stable measuring up to 5.2 cm in the axial plane. MUSCULOSKELETAL: No acute osseous abnormalities. Moderate disc degeneration changes are present throu ghout the thoracolumbar spine. LYMPH NODES: No gross evidence for lymphadenopathy. SOFT TISSUE/ABDOMINAL WALL: Unremarkable IMPRESSION: 1. Stable exam when compared to the study from one week prior demonstrating diffuse suspected hepati c metastatic disease and trace intra-abdominal ascites. 2. Stable aortoiliac graft and infrarenal abdominal aneurysm. 3. Findings concerning for prostatic hyperplasia. [facility], , 06/23/2024 5:46 PM
--- NOTE | 2024-06-23 17:54 | CT ---
EXAMINATION TYPE: CT chest angio for PE CT DLP: 1229.5 mGycm, Automated exposure control for dose reduction was used. DATE OF EXAM: 06/23/2024 5:37 PM COMPARISON: CT 11/10/2023. CLINICAL INDICATION:Male, 78 years old with history of ELISABETH, chest pain; ELISABETH, chest pain and abdominal pain TECHNIQUE/CONTRAST: CTA scan of the thorax is performed with IV Contrast, patient injected with 80ml mL of Isovue 370, MS P images are created and reviewed these are created on a separate workstation.. FINDINGS: Pulmonary Artery: There is no evidence for a filling defect within the pulmonary vasculature to sugge st acute pulmonary embolism. The pulmonary artery is of normal size. Lungs/Pleura: Moderate right-sided pleural effusion is identified. Scattered centrilobular emphysemat ous changes are identified. Scattered groundglass opacities are identified within both lungs. Atelect asis of a component of the right lower lung is appreciated. Airway: Large airways are patent. Heart: Heart is within normal limits for size. Vasculature: No evidence of aortic aneurysm. Mediastinum: Enlarged hilar mediastinal lymph nodes are present, advertising account representative lymph nodes include a right hilar lymph node measuring 2.5 cm in the axial plane. Subcarinal lymph node measuring 1.7 cm. Musculoskeletal: No acute osseous abnormalities Soft Tissues: Unremarkable. Lower neck: No significant findings. IMPRESSION: 1. No evidence of pulmonary embolism. 2. Moderate right-sided pleural effusion. 3. Mediastinal and hilar adenopathy, concerning for underlying metastatic disease. 4. Emphysematous changes of the lungs. [facility], , 06/23/2024 5:52 PM
[2024-06-23 18:29] LABS: Bilirubin, Delta 1.5 mg/dL (0.0-0.2); Bilirubin,Unconjugated 1.5 mg/dL (0.0-1.1)
[2024-06-23 19:21] VITALS: BP 110/67; PULSE 94; RESP 20
[2024-06-23] MEDS: HYDROmorphone 1 MG/ML 1 ML SYRINGE IVP STA (19:22)
== END 2024-06-23 19:32 | disposition other institution (70) ==
LOC: EC 15:31
CPT/HCPCS: 36415; 71046; 71275; 74177; 80053; 81001; 82150; 82248; 83690; 83735; 83880; 84484; 85025; 85610; 85730; 87636; 93005; 96361; 96374; 96375; 99285